=== PATIENT | female | born 1970 | race Caucasian/White ===

== ENCOUNTER 2019-06-09 17:43 | Outpatient (REF) | payer OTHER, SELFPAY ==
--- NOTE | 2019-06-09 16:15 | PAPFT_PTH ---
PATIENT: Katiana Monroe LOC: [facility]#:[id number] AGE/SX: 49/F ROOM: RE06/09/[address]: Kenton Harry : 1970 BED: DIS: 06/09/2019 SPEC #: [id number] RECD: 06/10/19 13:04 STATUS: IRMA ARANA #: [id number] TAYLOR: 06/09/19 16:[address]: Kenton Harry DEPT: [facility] Cytology RECD BY: Vane Rebolledo ENTERED: 06/10/19 13:04 SP TYPE: PAPFT OTHR DR: Opal aBrrett Tissues: 1 - CX/ENDOCX FOR PAP SMEARS Procedures: PAP THIN PREP/UVM Screening HPV DNA PROBE Comments: [id number]
== END 2019-06-09 18:03 ==
LOC: NCHCN 17:43
PROVIDERS: PCP Nurse Practitioner Family; Visit Provider Physician Assistant Medical
DX: Z12.4 Encounter for screening for malignant neoplasm of cervix (principal); Z11.51 Encounter for screening for human papillomavirus (HPV)
CPT/HCPCS: 88142; 87624

== ENCOUNTER 2019-06-16 07:02 | Outpatient (CLI) | payer OTHER, SELFPAY ==
[2019-06-16 08:02] LABS: ALT 22 U/L (14-59); AST 9 U/L (15-37); Albumin 3.6 g/dL (3.4-5.0); Alkaline Phosphatase 68 U/L (46-116); Anion Gap 6.5 mmol/L (3-11); BUN 14 mg/dL (7-18); Bilirubin, Total 0.5 mg/dL (0.2-1.0); CO2 27.5 mmol/L (21.0-32.0); CREATININE 0.72 mg/dL (0.55-1.02); Calcium 8.8 mg/dL (8.5-10.1); Calculated LDL 113 mg/dL (<100); Chloride 104 mmol/L (98-107); Cholesterol 180 mg/dL (<200); Glucose 95 mg/dL (74-106); HDL Cholesterol 51 mg/dL (40-60); Sodium 138 mmol/L (136-145); Total Protein 6.1 g/dL (6.4-8.2); Triglyceride 84 mg/dL (<150)
== END 2019-06-16 07:22 ==
PROVIDERS: PCP Physician Assistant Medical; Visit Provider Physician Assistant Medical
DX: Z00.00 Encounter for general adult medical examination without abnormal findings (principal); Z13.220 Encounter for screening for lipoid disorders; Z13.228 Encounter for screening for other metabolic disorders
CPT/HCPCS: 36415; 80053; 80061

== ENCOUNTER 2020-04-05 00:38 | Outpatient (CLI) | payer OTHER, SELFPAY ==
--- NOTE | 2020-04-05 16:22 | DI.MAMMO_ITS ---
EXAM: MG MAMMO SCREENING CLINICAL HISTORY: SCREENING,[facility],Z00.00 TECHNIQUE: Bilateral full field digital CC and MLO mammographic images were obtained with 3D tomosyn thesis and utilizing computer aided detection (CAD). COMPARISON: Available for comparison. FINDINGS: There is motion on the left MLO view. This view should be repeated at the patient's convenience. Masses/Architectural Distortion: None seen. Microcalcifications: No suspicious pleomorphic-type are seen. Skin Thickening/Nipple Retraction: None. IMPRESSION: 1. No significant interval change with no specific features of malignancy noted. 2. Motion artifact on the left MLO view. The patient should return for repeat view. BI-RADS Category 0 - Assessment Incomplete: Need additional imaging evaluation Breast Density - Category C - Heterogeneously dense The mammogram demonstrates the patient's breast tissue is dense. Dense breast tissue is very common a nd is not abnormal but dense breast tissue can make it harder to find cancer on a mammogram. Also, de nse breast tissue may increase their breast cancer risk. This [facility] was provided to the patient to raise their awareness. Use this report when you speak wi th the patient about their risks for breast cancer, which includes their family history. At that time , you may recommend for more screening tests (Ultrasound or MRI) as they might be useful based on the ir risk. A negative radiographic report should not delay biopsy if a dominant or clinically suspicious mass is present. Up to ten percent of cancers are not identified on mammography. A negative report may reinforce clinical impression. Adenosis and dense breasts may obscure an underlying neoplasm. False positive reports average 6 to 10%. Patient will receive a letter notifying them of these results.
== END 2020-04-05 00:58 ==
PROVIDERS: PCP Physician Assistant Medical; Visit Provider Physician Assistant Medical
DX: Z12.31 Encounter for screening mammogram for malignant neoplasm of breast (principal)
CPT/HCPCS: 77063; 77067

== ENCOUNTER 2020-04-20 01:16 | Outpatient (CLI) | payer OTHER, SELFPAY ==
--- NOTE | 2020-04-20 14:52 | DI.MAMMO_ITS ---
EXAM: MG MAMMO SCREEN CALL BACK UNI CLINICAL HISTORY: F/U MAMMO, REPEAT LT MLO FOR MOTION. TECHNIQUE: Bilateral full field digital CC and MLO mammographic images were obtained with 3D tomosyn thesis and utilizing computer aided detection (CAD). COMPARISON: Prior mammograms dating back to 2011, the most recent being May 2017 and most recent ly April 05, 2020. FINDINGS: As requested, a repeat left MLO view was performed due to motion on the original image of March. This no image reveals a subtle suggestion of a new microcalcification group. We therefore performed additional spot Mag view. This group appears benign in appearance at this time and probably is withi n a forming oil cyst (as are seen elsewhere in the same breast). IMPRESSION: New microcalcification group in the left breast, possibly within a developing oil cyst. Recommend fo llow-up Mag view in 6 months. BI-RADS Category 3 - 6 month - Probably Benign Finding: Recommend follow-up mammography in 6 months Breast Density - Category C - Heterogeneously dense Breast density Category C or D implies that the patient has dense breast tissue. Dense breast tissue can make it harder to find cancer on a mammogram. Dense breast tissue is also associated with an incr eased risk of breast cancer. This information about the result of the mammogram report was provided to the patient to raise their awareness. Use this report when you speak with the patient about their risks for breast cancer, which includes their family history. At that time, you may recommend additional screening tests (Ultrasoun d or MRI) as these tests may add significant information. A negative radiographic report should not delay biopsy if a dominant or clinically suspicious mass is present. Up to ten percent of cancers are not identified on mammography. A negative report may reinforce clinical impression. Adenosis and dense breasts may obscure an underlying neoplasm. False positive reports average 6 to 10%. Patient will receive a letter notifying them of these results.
== END 2020-04-20 01:36 ==
PROVIDERS: PCP Physician Assistant Medical; Visit Provider Physician Assistant Medical
DX: R92.0 Mammographic microcalcification found on diagnostic imaging of breast (principal)
CPT/HCPCS: 77063; 77067

== ENCOUNTER 2020-06-03 19:52 | Emergency (ER) | payer OTHER, SELFPAY ==
[2020-06-03 19:55] VITALS: BP 143/96; PULSE 61; RESP 16; TEMP 36.5; O2SAT 97
--- NOTE | 2020-06-03 20:00 | DI.RAD_ITS ---
EXAM: XR TIB/FIB RT CLINICAL HISTORY: pain s/p fall. TECHNIQUE: 2D digital imaging was performed. COMPARISON: No exams were available for comparison FINDINGS: BONES: No acute fracture is present. No bony destructive lesion is seen. Visualized portion of knee a nd ankle joints are unremarkable. SOFT TISSUE: Normal. IMPRESSION: Unremarkable radiographs of the right tibia and fibula. DATA REPOSITORY: RADIATION DOSE DELIVERED:
--- NOTE | 2020-06-03 20:08 | ED.GENADUL_ITS ---
Discharge Plan Disposition Patient Disposition: HOME Condition: Stable Discharge Details Clinical Impression: Contusion of leg, right Primary Care Provider: Kenton Harry ED Provider: Andrew Meyers Home Meds and New Rx's Prescriptions: New gabapentin 300 mg capsule 300 mg PO TID PRN (Reason: pain) Qty: 30 RF: 0 Continued doxepin 10 mg capsule 10 mg PO HS RF: 0 Discharge Instructions Instructions: Contusion in Adults (ED) Additional Instructions: if pain is not improving within a week follow up with your primary care provider return to the emergency department for severe worsening pain or new symptoms such as difficulty breathing or significant swelling of the leg Medical Decision Making 50 yo female with hx of right sided sciatica and has had increased lower back pain similar to prior episodes and yesterday was standing on her counter slipped and landed on right leg. Denies head pain, neck pain, arm pain, chest pain, abdominal pain and no preceding symptoms prior to this. Biggest complaint currently is right mid tibia pain, has no pain in the foot, ankle, knee or hip or femur. No lower back tenderness. No saddle anesthesia. Normal distal sensation and pulses, full rom of the hip, knee, and ankle. Has tenderness to the mid anterior tibia, no palpable or visible deformities so doubt fx but will xray to evaluate for this. xray negative, suspect contusion. Patient requests crutches in case it flares up again. Stable neurovascular exam. Advised to f/u with pcp if not improving within a week and return precautions given Differential Diagnosis Differential Diagnosis: contusion, sciatica, sprain, strain, fx Imaging Data Radiologic Study: Attestation: I personally reviewed and interpreted this imaging study as follows: Imaging: X-Ray Radiologist's impression: no acute findings HPI General Mode of arrival: ambulatory . Date/Time Provider Initiated Documentation: 06/03/20 20:02 . Limitations to Documentation: no limitations . Information obtained by: patient . History of Present Illness 50 year old F presents to the emergency department with the chief complaint of right tibia pain, described as moderate, Patient started experiencing this day(s) (1) and it has been constant. Rest improves symptom(s), Movement worsens symptoms . Patient notes no other symptoms.. Patient did receive the following treatments prior to arrival, NSAID Related Data Home Medications Medication Instructions Recorded Confirmed doxepin 10 mg PO HS 06/03/20 06/03/20 gabapentin 300 mg PO TID PRN #30 cap 06/03/20 Previous Rx's Medication Instructions Recorded gabapentin 300 mg PO TID PRN #30 cap 06/03/20 Allergies Allergy/AdvReac Type Severity Reaction Status Date / Time No Known Allergies Allergy Unverified 06/03/20 19:59 General Stated Complaint: Orthopedic ALFREDO: 4 Review of Systems All systems reviewed & are unremarkable except as noted in HPI and below Constitutional Constitutional: Denies chills, Denies fever(s) and Denies weakness Cardiovascular Cardiovascular: Denies chest pain and Denies dyspnea Respiratory Respiratory: Denies cough and Denies dyspnea Gastrointestinal Gastrointestinal: Denies abdominal pain, Denies nausea and Denies vomiting Neurologic Neurologic: Denies weakness PFSH Social History Smoking/Tobacco Use Status: Former Tobacco Use Smoking risk assessment performed?: Yes Alcohol Intake: current Alcohol Intake frequency: a few times a month Drug use: Never Substance use type: does not use Do you feel safe at home: Yes Do you feel safe in your relationship?: Yes Exam Const General: no acute distress Orientation: alert HENMT Head: normal to inspection Ears: external ears normal General nose exam: external nose normal Mouth: moist mucous membranes Eyes General: appearance normal, both eyes and all related structures Neck Neck: normal visual inspection Resp Effort & Inspection: normal respiratory effort and able to speak in complete sentences Cardio Rate: regular rate Skin General skin exam: no rashes or lesions noted Neuro General: patient alert and patient oriented x3 Extrem General: full ROM and capillary refill normal Psych Mental Status: mental status grossly normal Course Vital Signs Vital signs: Vital Signs Temperature 36.5 C 06/03/20 19:55 Pulse 61 06/03/20 19:55 Respiratory Rate 16 06/03/20 19:55 Blood Pressure 143/96 H 06/03/20 19:55 Pulse Oximetry 97 06/03/20 19:55 Temperature 36.5 C 06/03/20 19:55 Pulse 61 06/03/20 19:55 Respiratory Rate 16 06/03/20 19:55 Respiratory Effort Non-Labored 06/03/20 20:00 Blood Pressure 143/96 H 06/03/20 19:55 Pulse Oximetry 97 06/03/20 19:55 Pain Level 7 06/03/20 19:55
[2020-06-03] MEDS: Gabapentin 300 MG CAP PO (20:15)
--- NOTE | 2020-06-03 20:27 | DI.VRAD_ITS ---
PROCEDURE INFORMATION: Exam: XR Right Tibia and Fibula Exam date and time: 06/03/2020 8:20 PM Age: 50 years old Clinical indication: Lower leg; Right; Patient HX: Pain S/P fall TECHNIQUE: Imaging protocol: XR Right tibia and fibula. Views: 2 views. COMPARISON: No relevant prior studies available. FINDINGS: Bones/joints: No acute displaced fractures or subluxations are identified. Osseous mineralization is normal. There are no focal osseous lesions. There is no evidence for degenerative change at the right knee or right ankle. Soft tissues: Normal. IMPRESSION: No acute displaced fracture or subluxation. Dictated and Authenticated by: Marcus Courtney MD. Ordering:MIKE Morales MD
== END 2020-06-03 20:50 | disposition home or self-care (01) ==
PROVIDERS: Emergency Provider Emergency Medicine; PCP Physician Assistant Medical
DX: S80.11XA Contusion of right lower leg, initial encounter (principal); W17.89XA Other fall from one level to another, initial encounter; M54.41 Lumbago with sciatica, right side
CPT/HCPCS: 99283; 73590

== ENCOUNTER → 2020-11-14 02:01 | Outpatient (CLI) | payer OTHER, SELFPAY ==
--- NOTE | 2020-11-14 14:45 | DI.MAMMO_ITS ---
Exam(s) MG MAMMO DIAGNOSTIC UNI EXAM: MG MAMMO DIAGNOSTIC UNI CLINICAL HISTORY: DIAGNOSTIC, F/U ABNL MAMMO, 6 MONTH F/U,R92.8 TECHNIQUE: Mammograms were interpreted according to the usual protocol including computer analysis w [employer] CAD system, tomosynthesis and C-view imaging. COMPARISON: FINDINGS: Left breast mammogram was obtained to re-evaluate a group of microcalcifications seen in the upper ou ter quadrant of left breast on previous mammogram March 2020. On today's examination these are mo re clearly seen and appear to represent benign acinar microcalcifications. No other significant lee ge seen. IMPRESSION: No specific evidence of malignancy at this time. I would suggest that routine screening examinations resume with a bilateral mammogram 6 months. BI-RADS Category 3 - Annual - Resume Annual Screening Breast Density - Category C - Heterogeneously dense
== END ==
PROVIDERS: PCP Physician Assistant Medical; Visit Provider Physician Assistant Medical
DX: R92.8 Other abnormal and inconclusive findings on diagnostic imaging of breast (principal); R92.0 Mammographic microcalcification found on diagnostic imaging of breast; R92.2 Inconclusive mammogram
CPT/HCPCS: 77061; 77065; G0279

== ENCOUNTER 2021-05-21 16:11 | Outpatient (REF) | payer OTHER, SELFPAY ==
[2021-05-21 19:58] LABS: Hemoglobin A1C 5.5 % (<5.7)
[2021-05-21 20:07] LABS: Calculated LDL 154 mg/dL (<100); Cholesterol 248 mg/dL (<200); HDL Cholesterol 74 mg/dL (40-60); TSH (W/Ref FT4) 1.63 uIU/mL (0.36-3.74); Triglyceride 100 mg/dL (<150)
== END 2021-05-21 16:12 | disposition home or self-care (01) ==
LOC: NCHCN 16:11
PROVIDERS: PCP Physician Assistant Medical; Visit Provider Physician Assistant Medical
DX: Z71.3 Dietary counseling and surveillance (principal); Z13.21 Encounter for screening for nutritional disorder
CPT/HCPCS: 80061; 83036; 84443

== ENCOUNTER 2021-08-30 01:48 | Outpatient (CLI) | payer OTHER, SELFPAY ==
--- NOTE | 2021-08-30 07:36 | DI.MAMMO_ITS ---
Exam(s) MAMMO SCREENING EXAM: MAMMO SCREENING CLINICAL HISTORY: SCREENING, ANNUAL EXAM, Z00.00,6 mo f/u, resume annual TECHNIQUE: Mammograms were interpreted according to the usual protocol including computer analysis w [employer] CAD system, tomosynthesis and C-view imaging. COMPARISON: FINDINGS: The breasts are of moderate density with fairly symmetrical distribution of fibroglandular tissue. N o dominant mass or clumped microcalcification is identified in either breast. A central right breast well-circumscribed nodule is ring about 10 millimeters in diameter is unchanged from prior studies. A posteriorly located lobulated nodule of the left breast seen on CC view is unchanged from prior st udies. No other significant change. IMPRESSION: No specific evidence of malignancy at this time. Routine screening examinations are suggested at yea rly intervals in this age group according to the ACS ACR guidelines. BI-RADS Category 1 - Negative Breast Density - Category B - Scattered areas of fibroglandular density
== END 2021-08-30 02:08 ==
PROVIDERS: PCP Physician Assistant Medical; Visit Provider Physician Assistant Medical
DX: Z12.31 Encounter for screening mammogram for malignant neoplasm of breast (principal)
CPT/HCPCS: 77063; 77067

== ENCOUNTER → 2023-02-03 02:58 | Outpatient (CLI) | payer OTHER, SELFPAY ==
--- NOTE | 2023-02-03 | DI.MAMMO_ITS ---
Exam(s) MAMMO SCREENING EXAM: MAMMO SCREENING CLINICAL HISTORY: SCREENING, Z12.31, [facility], Z00.00 TECHNIQUE: Mammograms were interpreted according to the usual protocol including computer analysis w ith CAD system, tomosynthesis and C-view imaging. COMPARISON: 2013 through 2021 FINDINGS: The breasts are composed of scattered fibroglandular densities, Breast Density category B. No suspicious masses or suspicious microcalcifications are seen. No skin thickening or abnormal axillary lymph nodes are seen. There has been no significant change from prior exams. IMPRESSION: BI-RADS Category 1, Negative mammogram Yearly screening mammography is recommended. Breast Density - Category B, scattered fibroglandular densities. A negative radiographic report should not delay biopsy if a dominant or clinically suspicious mass is present. Up to ten percent of cancers are not identified on mammography. A negative report may reinforce clinical impression. Adenosis and dense breasts may obscure an underlying neoplasm. False positive reports average 6 to 10%. Patient will receive a letter notifying them of these results.
== END ==
PROVIDERS: PCP Physician Assistant Medical; Visit Provider Physician Assistant Medical
DX: Z12.31 Encounter for screening mammogram for malignant neoplasm of breast (principal)
CPT/HCPCS: 77063; 77067

== ENCOUNTER 2023-03-08 18:43 | Emergency (ER) | payer OTHER, SELFPAY ==
[2023-03-08 18:49] VITALS: BP 145/97; PULSE 69; RESP 16; TEMP 37.1; O2SAT 99
--- NOTE | 2023-03-08 18:53 | ED.GENADUL_ITS ---
Discharge Plan Disposition Patient Disposition: Home Discharge Details Clinical Impression: Lymphadenitis, acute Primary Care Provider: Kenton Harry ED Provider: Andrew Meyres Home Meds and New Rx's Prescriptions: New amoxicillin-pot clavulanate 875-125 mg tablet 1 tab PO BID Qty: 14 0RF amoxicillin-pot clavulanate 875-125 mg tablet 1 tab PO BID Qty: 20 0RF Continued loratadine [Claritin] 10 mg tablet 10 mg PO DAILY Discharge Instructions Instructions: Adenitis (ED) Additional Instructions: Follow up with your primary care provider within a week if not improving You should take the augmentin twice daily for 10 days (I sent the first prescription in for only 7 days on error, you only need to fill the prescription that is for 10 days) if you feel more ill, have severe worsening pain or high fevers return to the emergency department Medical Decision Making 52 yo female who denies significant chronic medical problems comes in after she noticed a painful lump near her right shoulder. She states she felt well all day and has not had any recent fevers, chills or other uri symptoms. She states she touched her right shoulder area and noticed a painful lump so came here. She is stable on arrival speaking clearly in no distress. She has a 2x3cm area of mild erythema midway between the neck and shoulder just superior to the clavicle. No swelling or pain in the shoulder. There is a hard mobile approximat greg 1cm nodule in the center that I suspect is an enlarged lymph node. She has no fluctuance and on bedside u/s has no fluid collections to suggest abscess. Will start her on augmentin for lymphadenititis given no recent uri or other symptoms to suggest reactive lymphadenitis from a viral illness. She understands to f/u with her pcp and return precautions given. given well appearance and no fevers doubt sepsis of nec fasc and do not feel any labs or imaging indicated. Differential Diagnosis Differential Diagnosis: lymphadenisitis, cellulitis HPI General Mode of arrival: ambulatory . Date/Time Provider Initiated Documentation: 03/08/23 18:44 . Limitations to Documentation: no limitations . Information obtained by: patient . History of Present Illness 52 year old F presents to the emergency department with the chief complaint of lump near right shoulder, described as moderate, Quality is described as aching, Patient started experiencing this hour(s) (1) and it has been constant. No relieving factors improve symptom(s), No exacerbating factors reported . Patient notes no other symptoms.. Patient did receive the following treatments prior to arrival, none Related Data Home Medications Medication Instructions Recorded Confirmed loratadine 10 mg tablet (Claritin) 10 mg PO DAILY 06/15/21 03/08/23 amoxicillin 875 mg-potassium 1 tab PO BID #14 tabs 03/08/23 clavulanate 125 mg tablet amoxicillin 875 mg-potassium 1 tab PO BID #20 tabs 03/08/23 clavulanate 125 mg tablet Previous Rx's Medication Instructions Recorded amoxicillin 875 mg-potassium 1 tab PO BID #14 tabs 03/08/23 clavulanate 125 mg tablet amoxicillin 875 mg-potassium 1 tab PO BID #20 tabs 03/08/23 clavulanate 125 mg tablet Allergies Allergy/AdvReac Type Severity Reaction Status Date / Time fluticasone [From Flonase] Allergy Severe unknown Verified 03/08/23 18:53 General Stated Complaint: RashLesion ALFREDO: 4 Review of Systems All systems reviewed & are unremarkable except as noted in HPI and below Constitutional Constitutional: Denies chills, Denies fever(s) and Denies weakness Cardiovascular Cardiovascular: Denies chest pain and Denies dyspnea Respiratory Respiratory: Denies cough and Denies dyspnea Gastrointestinal Gastrointestinal: Denies abdominal pain, Denies nausea and Denies vomiting Musculoskeletal Musculoskeletal: Denies joint swelling Neurologic Neurologic: Denies weakness PFSH All Active Problems (Updated 03/08/23 @ 19:08 by Andrew Meyers MD) Lymphadenitis, acute (Acute) Screening for colon cancer (Acute) Medical History (Updated 03/08/23 @ 19:08 by Andrew Meyers MD) Abnormal serum iron level Abnormal mammogram of right breast Learning disabilities Anxiety disorder Galactorrhea History of anemia Decreased libido Depression Snoring Family history of alcohol abuse Abnormality of left breast on screening mammogram Skin tag Social History Smoking/Tobacco Use Status: Former Tobacco Use Smoking risk assessment performed?: Yes Alcohol Intake: current Alcohol Intake frequency: a few times a month Drug use: Never Substance use type: does not use Do you feel safe at home: Yes Do you feel safe in your relationship?: Yes Exam Const General: no acute distress Orientation: alert HENME Head: normal to inspection Ears: external ears normal General nose exam: external nose normal Mouth: moist mucous membranes Eyes General: appearance normal, both eyes and all related structures Neck Neck: normal visual inspection Resp Effort & Inspection: normal respiratory effort and able to speak in complete sentences Cardio Rate: regular rate Skin General skin exam: elasticity normal Neuro General: patient alert and patient oriented x3 Extrem General: normal to inspection Psych Mental Status: mental status grossly normal Course Vital Signs Vital signs: Vital Signs Temperature 37.1 C 03/08/23 18:49 Pulse 69 03/08/23 18:49 Respiratory Rate 16 03/08/23 18:49 Blood Pressure 145/97 H 03/08/23 18:49 Pulse Oximetry 99 03/08/23 18:49 Temperature 37.1 C 03/08/23 18:49 Temperature Source Oral 03/08/23 18:49 Pulse 69 03/08/23 18:49 Respiratory Rate 16 03/08/23 18:49 Respiratory Effort Normal, Splinting 03/08/23 18:52 Blood Pressure 145/97 H 03/08/23 18:49 Blood Pressure Position Sitting 03/08/23 18:49 Pulse Oximetry 99 03/08/23 18:49 Oxygen Delivery Method Room Air 03/08/23 18:49 Oxygen Flow Rate 0 03/08/23 18:49 Pain Level 1 03/08/23 18:49
[2023-03-08] MEDS: Amoxicillin 875/Clav. 125 TAB PO (19:08)
[2023-03-08 19:37] VITALS: PULSE 78; RESP 18; O2SAT 97
== END 2023-03-08 19:37 | disposition home or self-care (01) ==
PROVIDERS: Emergency Provider Emergency Medicine; PCP Physician Assistant Medical
DX: L04.9 Acute lymphadenitis, unspecified (principal)
CPT/HCPCS: 99283; 99284

== ENCOUNTER 2023-07-25 07:32 | Outpatient (CLI) | payer BC, SELFPAY ==
[2023-07-25 07:33] LABS: Abs Immature Grans 0.01 10^3/uL (0.0-0.06); Absolute Basophil Count 0.06 10^3/uL (0.0-0.2); Absolute Eosinophil Count 0.14 10^3/uL (0.0-0.7); Absolute Lymphocyte Count 2.05 10^3/uL (1.2-3.4); Absolute Monocyte Count 0.45 10^3/uL (0.1-0.8); Absolute Neutrophil Count 3.54 10^3/uL (1.2-6.7); Eosinophils % 2.2; HGB 14.2 g/dL (11.2-15.7); Immature Grans % 0.2; Lymphocytes % 32.8; MCH 27.6 pg (27.0-33.0); MCV 84 fL (80-95); MPV 9.1 fL (8.0-11.0); Monocytes % 7.2; Neutrophils % 56.6; Platelet Count 234 10^3/uL (130-400); RBC 5.15 10^6/uL (3.93-5.22); RDW 13.9 % (11.7-14.6); RDW-SD 42.4 fL; WBC 6.25 10^3/uL (4.4-10.8)
[2023-07-25 08:21] LABS: Hemoglobin A1C 5.5 % (<5.7)
[2023-07-25 08:36] LABS: Vitamin D 25 Total 19.3 ng/mL (30-100)
[2023-07-25 08:37] LABS: ALT 22 U/L (14-59); AST 7 U/L (15-37); Albumin 3.7 g/dL (3.4-5.0); Alkaline Phosphatase 118 U/L (46-116); Anion Gap 6.1 mmol/L (3-11); BUN 20 mg/dL (7-18); Bilirubin, Total 0.3 mg/dL (0.2-1.0); CO2 29.9 mmol/L (21.0-32.0); CREATININE 0.9 mg/dL (0.55-1.02); Calcium 9.6 mg/dL (8.5-10.1); Calculated LDL 132 mg/dL (<100); Chloride 106 mmol/L (98-107); Cholesterol 217 mg/dL (<200); Ferritin 145 ng/mL (8-252); Glucose 96 mg/dL (74-106); HDL Cholesterol 64 mg/dL (40-60); Sodium 142 mmol/L (136-145); TSH (W/Ref FT4) 2.58 uIU/mL (0.36-3.74); Triglyceride 106 mg/dL (<150); Vitamin B12 528 pg/mL (193-986)
[2023-07-25 20:49] LABS: FSH 146.8 mIU/mL (See Note)
== END 2023-07-25 07:33 | disposition home or self-care (01) ==
LOC: LBO 07:45
PROVIDERS: PCP Physician Assistant Medical; Visit Provider Nurse Practitioner Family
DX: I10 Essential (primary) hypertension (principal); E78.5 Hyperlipidemia, unspecified; E66.9 Obesity, unspecified
CPT/HCPCS: 36415; 80053; 80061; 82306; 82607; 82728; 83001; 83036; 84443; 85025

== ENCOUNTER 2023-08-18 09:49 | Outpatient (CLI) | payer BC, SELFPAY ==
[2023-08-18 08:29] LABS: TSH 2.22 uIU/Ml (0.36-3.74)
== END 2023-08-18 09:50 | disposition home or self-care (01) ==
LOC: LBO 09:50
PROVIDERS: PCP Physician Assistant Medical; Visit Provider Nurse Practitioner Family
DX: E03.9 Hypothyroidism, unspecified (principal)
CPT/HCPCS: 36415; 84443

== ENCOUNTER 2024-02-20 00:41 | Outpatient (CLI) | payer BC, SELFPAY ==
--- NOTE | 2024-02-20 | DI.MAMMO_ITS ---
Exam(s) MAMMO SCREENING EXAM: MAMMO SCREENING CLINICAL HISTORY: SCREENING, ROUTINE EXAM TECHNIQUE: Mammograms were interpreted according to the usual protocol including computer analysis w [employer] CAD system, tomosynthesis and C-view imaging. COMPARISON: 2013 through 2022 FINDINGS: The breasts are composed of scattered fibroglandular densities, Breast Density category B. No suspicious masses or suspicious microcalcifications are seen. No skin thickening or abnormal axillary lymph nodes are seen. There has been no significant change from prior exams. IMPRESSION: BI-RADS Category 1, Negative mammogram Yearly screening mammography is recommended. Breast Density - Category B, scattered fibroglandular densities. A negative radiographic report should not delay biopsy if a dominant or clinically suspicious mass is present. Up to ten percent of cancers are not identified on mammography. A negative report may reinforce clinical impression. Adenosis and dense breasts may obscure an underlying neoplasm. False positive reports average 6 to 10%. Patient will receive a letter notifying them of these results.
== END 2024-02-20 01:01 ==
LOC: DI 00:41
PROVIDERS: PCP Physician Assistant Medical; Visit Provider Nurse Practitioner Family
DX: Z12.31 Encounter for screening mammogram for malignant neoplasm of breast (principal)
CPT/HCPCS: 77063; 77067

== ENCOUNTER 2024-03-12 10:02 | Day surgery (SDC) | payer BC, SELFPAY ==
--- NOTE | 2024-03-11 21:52 | COLE_ITS ---
Date of service: 03/12/24 Time of Service: 11:45 Colonoscopy Report Date of procedure: 03/12/24 Pre-op diagnosis general: CRC screen/constipaiton Post-op diagnosis procedure note: other (Diverticula and internal hemorrhoids) Surgeon: Amelia Alfredo Anesthesia Type: General:No Airway Estimated blood loss (mL): 0 Pathology: none sent Complications: None Disposition: same day Prep: Miralax/Dulcolax Retraction Time: 8 Procedure Description: After informed consent was obtained, explaining risks of the procedure, including but not limits to: bleeding, infections, complications of anesthesia, perforations (which may require antibiotics and /or surgery and stay in the hospital), and abdominal pain/cramping. The patient was taken to the procedure room and placed in a left decubitous position. Monitors were applied and a time out was done. The patients name, date of , procedure, allergies to medications and metal in their body was reviewed. The patient was then sedated. Once sedated and comfortable a rectal exam was done. External exam was normal. Internal exam revealed a normal sphincter tone and no palpable masses. The previously lubricated Olympus scope was then introduced (see RN notes for scope number) and retrofelexed. Grade 2 internal hemorrhoids were identified. The scope was then advanced to the cecum without difficulty. The TI and appendiceal orifice were identified. The scope was then slowly retracted over 8 minutes back into the rectum. Polyps: none. Diverticula: pt had a moderate amount of small mouthed diverticula in the sigmoid colon. There were no signs of active bleeding or infection. The mucosa is pink and healthy w/ a normal vascular pattern. The scope was removed, and the patient was woken up and taken back to Same day surgery in stable condition. The patient tolerated the procedure well and there were no immediate complications. Follow up: The patient should follow up in 10 years, unless they develop changes in bowel habits or other new gastrointestinal complaints. [place] Bowel Prep [place] Bowel Prep Right Colon: 3 Left Colon: 3 Transverse Colon: 3 Total Score: 9
--- NOTE | 2024-03-11 21:54 | PDOC.DSDIS_ITS ---
Date of service: 03/12/24 Time of Service: 13:33 Discharge Plan Disposition Patient Disposition: Home Condition: Good Discharge Details Reason For Visit: colon scope Attending Provider: Amelia Alfredo Primary Care Provider: Kenton Harry Home Meds and New Rx's Prescriptions: New psyllium husk [Metamucil] 0.4 gram capsule 0.8 g PO DAILY Qty: 60 12RF Rx Instructions: take w/ 8oz water. can increase to 4 tabs a day Continued loratadine [Claritin] 10 mg tablet 10 mg PO DAILY cholecalciferol (vitamin D3) 125 mcg (5,000 unit) capsule 125 mcg PO DAILY omega 1-qaw-eur-fish oil [Fish Oil] 300-1,000 mg capsule 2 cap PO DAILY montelukast 10 mg tablet 10 mg PO QHS levothyroxine 25 mcg capsule 50 mcg PO DAILY Discontinued bisacodyl [Dulcolax (bisacodyl)] 5 mg tablet,delayed release (DR/EC) 5 mg PO ONCE Qty: 4 0RF Rx Instructions: Take per colonoscopy instructions provided by ordering providers office polyethylene glycol 3350 17 gram/dose powder 17 g PO ONCE Qty: 238 0RF Rx Instructions: Take per colonoscopy instructions provided by ordering providers office Discharge Instructions Additional Instructions: DSU Colonoscopy Post- Op Instructions Instructions for Everyone who is given Anesthesia: For your safety, please do the following for the next twenty-four (24) hours: *Do Not operate a motor vehicle (car, truck, motorcycle, etc.) *Do Not drink alcoholic beverages or use any recreational drugs for the first 24 hours or while taking pain medications. The medications in your body may have a reaction that can be dangerous. *Do Not make any important decisions or sign any important papers. Findings: Diverticula and internal hemorrhoids. Make sure you are moving your bowels on a regular basis and not straining to go to the bathroom. If you find you are having problems with constipation, we recommend you start a fiber product such as Metamucil daily Follow up: Repeat colonoscopy in 10 years time, Of course, you should continue to have a yearly physical exam including a rectal exam. If you should ever notice any pain or difficulty having a bowel movement, blood in the stool, unexplained weight loss, or change in your bowel habits, please contact your health provider . 1. No lifting over 20 pounds or strenuous activity for the first 24 hours after your procedure. After 24 hours there are no restrictions on your activity but you may feel fatigued for a few days. 2. After you arrive home you may have a light meal and return to your normal diet as you can tolerate it without feeling sick to your stomach. 3. You may have a bloated, gaseous feeling in your belly (abdomen) after a colonoscopy. Passing gas and belching will help. Walking or lying down on your left side with your knees flexed may relieve the discomfort. Call the office at [phone] (Office) or [phone] (Hospital) right away if you notice any of the following: a.Vomiting of blood or ?coffee ground stools?. b.Rectal bleeding 1Tbsp, blood clots or continuous bleeding. c.Severe belly (abdominal) pain. d.A hard distended belly (abdomen) and an inability to pass gas. 4. Please don?t expect to have a normal BM (bowel movement) for 2-3 days after your procedure. 5. If there are questions regarding the findings of your procedure, please contact your doctor 6. If you are unable to contact your doctor with a problem, contact the hospital at [phone]. 7. Continue all your regular medications unless directed otherwise. I understand the above instructions and have no questions. Signature of Patient or Adult Escort Name of Responsible Adult Escort Signature of Nurse Date/Time Stand Alone Forms: Anesthesia Discharge Jose J Jimenez (DSU) Activity:: see above Diet:: see above Discharge Orders Discharge Orders: Discharge Order (Routine); Ordered 03/12/24 Ordered By: Amelia Alfredo DS: Diagnosis Discharge Diagnosis (1) Screening for colon cancer: Status: Acute Asessment and Plan: The patient is seen and examined after their colonoscopy.? The patient has been able to pass gas.? They are not having abdominal pain.? They have been able to tolerate liquids and a snack.? They do not have any nausea or vomiting.? They are not having any chest pain or shortness of breath.??? They are not having any rectal bleeding. Their vital signs have been stable-see nursing notes. We discussed findings during their colonoscopy, and any biopsies that were done/polyps that were removed. The patient will be sent a letter with any biopsy results, and when to repeat the colonoscopy.-see discharge instructions. Patient was given explicit instructions to follow-up regarding colonoscopy-refer to discharge instructions.? We reviewed resumption of medications. Patient verbalized understanding and discharged in stable and satisfactory condition- See nursing notes. (2) Diverticula of colon: Status: Acute (3) Internal hemorrhoid: Status: Acute (4) Chronic constipation: Status: Acute
[2024-03-12 10:21] VITALS: BP 128/98; PULSE 64; RESP 16; TEMP 36.5; O2SAT 97
[2024-03-12] MEDS: Lactated Ringers 500 ML 80 ML IV (10:41)
[2024-03-12 11:01] VITALS: BMI 36.2
--- NOTE | 2024-03-12 11:01 | W.ANESPRE ---
General Info Date of Service Date Performed: 03/12/24 Height: 5 ft 5 in Weight: 98.8 kg Body Mass Index (BMI): 36.2 Surgical Procedure: Operation Date: 03/12/24 10:50 Proposed Procedure Side Surgeon p Colonoscopy Amelia Alfredo, Pre-Op Diagnosis Post-Op Diagnosis colon scope Meds Allergies and Home Medications Allergies Allergy/AdvReac Type Severity Reaction Status Date / Time fluticasone (From Flonase) Allergy Severe unknown Verified 03/12/24 10:15 Home Medication ?Medication ?Instructions ?Recorded loratadine 10 mg tablet (Claritin) 10 mg PO DAILY 06/15/21 cholecalciferol (vitamin D3) 125 125 mcg PO DAILY 01/08/24 mcg (5,000 unit) capsule montelukast 10 mg tablet 10 mg PO QHS 01/08/24 omega 5-hjb-ngm-fish oil 300 2 cap PO DAILY 01/08/24 mg-1,000 mg capsule (Fish Oil) levothyroxine 25 mcg capsule 50 mcg PO DAILY 02/13/24 Current Visit Medications: Current Medications Generic Name Dose Route Start Last Admin Trade Name Freq PRN Reason Stop Dose Admin Hyoscyamine Sulfate 0.125 mg 03/12/24 00:44 Hyoscyamine 0.125 Mg Sl/Oral/Chew SL 04/11/24 00:43 DIRECTED PRN Ringer's Solution 500 mls @ 80 mls/hr 03/12/24 06:00 03/12/24 10:41 IV 03/12/24 23:59 80 mls/hr INFUSION ONEIL Administration IV Miscellaneous Supplies 1 each 03/12/24 06:00 Iv Access IV 03/12/24 23:59 DIRECTED ONEIL Ondansetron HCl 4 mg 03/12/24 00:44 Ondansetron 4 Mg/2 Ml Vial IVP 04/11/24 00:43 Q4H PRN PRN Nausea / Vomiting Sodium Chloride 0 ml 03/12/24 06:00 Normal Saline Flush 10 Ml Syr IV 03/12/24 23:59 PRN PRN Sodium Chloride 0 ml 03/12/24 06:00 Normal Saline 10 Ml Vial IJ 03/12/24 23:59 DIRECTED PRN Sterile Water 0 ml 03/12/24 06:00 Water,Injection,Sterile 10 Ml Vial IJ 03/12/24 23:59 DIRECTED PRN PFSH Active Problems Active Problems: Problem Status Onset Code Screening for colon cancer Acute Z12.11 Medical History Medical History Abnormal serum iron level Abnormal mammogram of right breast Learning disabilities Anxiety disorder Galactorrhea History of anemia Decreased libido Depression Snoring Family history of alcohol abuse Abnormality of left breast on screening mammogram Skin tag Medical History Comments:: menopause 3 yrs ago Surgical History Surgical History History of tubal ligation (~2020) Tobacco Smoking/Tobacco Use Status: Former Tobacco Use Alcohol Alcohol Intake: current Alcohol intake frequency: a few times a month Substance Use Substance use: Never Substance use type: does not use Vital Signs and Lab Results Vital Signs Most Recent Vital Signs in EMR: Most Recent Vital Signs Temp Pulse Resp BP Pulse Ox 36.5 C 64 16 128/98 H 97 03/12/24 10:21 03/12/24 10:21 03/12/24 10:21 03/12/24 10:21 03/12/24 10:21 Lab Results Blood Type / Crossmatch: No Data to Display Complete Blood Count: No Data to Display Complete Metabolic Panel: No Data to Display Liver Function Panel: No Data to Display Coagulation Panel: No Data to Display Cardiac Panel: No Data to Display Arterial Blood Gas: No Data to Display Venous Blood Gas: No Data to Display Pancreas Panel: No Data to Display Thyroid Panel: No Data to Display Infectious Disease: No Data to Display Blood Cultures: No Data to Display Toxicology Panel: No Data to Display Panel: No Data to Display Anesthesia Assessment and Plan Anesthesia History Personal History: No History of Anesthesia Complications Family History: Other Exercise Tolerance Exercise Tolerance: Metabolic Equivalents>4 Pertinent Negatives Pertinent Negatives: No Symptoms of GERD Cardiac & Pulmonary Exam Cardiac Exam: Normal S1/S2 Heart Sounds Pulmonary Exam: Clear Bilateral Breath Sounds Implantable Cardiac Device Does patient have a Pacemaker or an ICD?: No Airway Exam Known Difficult Airway: No Mallampati Class: 2 Mouth Opening: Normal (> 3cm) Thyromental Distance: Greater than 3 cm Neck Range of Motion: Full ROM Neck Circumference: Normal Teeth Condition: Normal Dentition ASA Classification ASA Score: ASA 2 Emergency Case?: No NPO Status NPO Status: NPO Clears >2 hours, Solids >8 hours Status Status: Not Relevant due to Medical History Anesthesia Plan Resuscitation Status: Full Code Anesthesia Technique: General Anesthesia Airway Planned: Natural Airway Monitors Used: Standard Monitors
[2024-03-12 11:42] VITALS: BP 121/86; PULSE 76; RESP 16; TEMP 36.2; O2SAT 97
--- NOTE | 2024-03-12 11:54 | W.ANESPOSTOP ---
Postoperative Evaluation Date, Time and Location Date Performed: 03/12/24 Time Performed: 11:54 Patient Location: Day Surgery Unit Vital Signs Most Recent Imported Vital Signs: Most Recent Vital Signs Temp Pulse Resp BP Pulse Ox 36.5 C 64 16 128/98 H 97 03/12/24 10:21 03/12/24 10:21 03/12/24 10:21 03/12/24 10:21 03/12/24 10:21 Pain Score Most Recent Pain Score: Most Recent Pain Score Pain Level 2 03/12/24 10:21 Assessment Mental Status: Awake (Alert & Oriented to Patient Baseline) Airway and Respiratory Function: Patent airway with normal (patient baseline) respiratory exam Cardiovascular Function: Hemodynamically Stable Hydration Status: Adequately Hydrated Nausea & Vomiting: No Nausea or Vomiting Pain: Pt. Denies Any Pain Peripheral Nerve Block: Patient did not receive a nerve block
[2024-03-12 12:19] VITALS: BP 125/82; PULSE 63; RESP 16; TEMP 36.4; O2SAT 98
== END 2024-03-12 13:55 | disposition home or self-care (01) ==
LOC: SUR 10:02
PROVIDERS: PCP Physician Assistant Medical; Visit Provider Surgery
PROC: 0DJD8ZZ Inspection of Lower Intestinal Tract, Via Natural or Artificial Opening Endoscopic (ICD-10-PCS; CPT 45378; principal; 2024-03-12 10:45)
DX: Z12.11 Encounter for screening for malignant neoplasm of colon (principal); K57.30 Diverticulosis of large intestine without perforation or abscess without bleeding; K59.09 Other constipation; K64.1 Second degree hemorrhoids
CPT/HCPCS: 45378; J2704

== ENCOUNTER 2024-05-07 08:48 | Outpatient (RCR) | payer BC, SELFPAY ==
--- NOTE | 2024-05-11 08:52 | W.HOLTRPT ---
Date of service: 05/11/24 Time of Service: 08:53 Holter Monitor Report Referring Provider:: Isabella Boone Indications:: Atrial fibrillation Holter Monitor Note: This is a 48-hour Holter monitor. Rhythm throughout was sinus with an average heart rate of 77. Minimum was 49, maximum 128. There were rare atrial and ventricular ectopic beats. There were several self-limited atrial runs. Longest of these was 10 beats in duration. There was no atrial fibrillation, no high-grade AV block, no pauses greater than 3 seconds. No symptoms were reported
== END 2024-05-18 23:59 | disposition home or self-care (01) ==
LOC: CARDOPNVT 08:48
PROVIDERS: PCP Physician Assistant Medical; Visit Provider Internal Medicine Cardiovascular Disease
DX: I49.1 Atrial premature depolarization (principal); Z51.89 Encounter for other specified aftercare
CPT/HCPCS: 93225; 93226

== ENCOUNTER 2024-06-23 09:18 | Inpatient (IN) | payer BC, SELFPAY ==
[2024-06-23] VITALS (127 sets, daily range): BP systolic 82–144; BP diastolic 43–124; PULSE 52–169; RESP 14–32; TEMP 36.6–38.1; O2SAT 87–100
--- NOTE | 2024-06-23 09:15 | RT.EKG_ITS ---
APPROVED REPORT Exam: Resting ECG Reason for Exam: Palpatations Patient Location: E HR:128 bpm ECG Measurements Heart Rate 128 [address] NV [id number] P [id number] QRSd 83 QRS -38 QT 320 T 29 QTc 467 Conclusion Atrial fibrillation...V-rate 85-169, irreg A-activity Left axis deviation...QRS axis (-30,-90) Low voltage, precordial leads...precordial leads <1.0mV Consider anterior infarct...Q >30mS in V2-V5
--- NOTE | 2024-06-23 09:15 | RT.EKG_ITS ---
APPROVED REPORT Exam: Resting ECG Reason for Exam: rapid heart rate Patient Location: E HR:151 bpm ECG Measurements Heart Rate 151 [address] MN [id number] P [id number] QRSd 79 QRS -38 QT 284 T 58 QTc 451 Conclusion Atrial fibrillation...V-rate 106-200, irreg A-activity Left axis deviation...QRS axis (-30,-90)
--- NOTE | 2024-06-23 09:31 | W.ED.GENAD ---
Discharge Plan Disposition Patient Disposition: Admit to [facility] Condition: Stable Discharge Details Chief Complaint: Dizzy/Sync Clinical Impression: Atrial fibrillation with RVR, Influenza A Primary Care Provider: Kenton Harry ED Provider: Andrew Meyers [place] Meds and New Rx's Prescriptions: No Action loratadine [Claritin] 10 mg tablet 10 mg PO DAILY cholecalciferol (vitamin D3) 125 mcg (5,000 unit) capsule 125 mcg PO DAILY omega 7-pik-qko-fish oil [Fish Oil] 300-1,000 mg capsule 2 cap PO DAILY montelukast 10 mg tablet 10 mg PO QHS levothyroxine 25 mcg capsule 50 mcg PO DAILY Zepbound 2.5 mg/0.5 mL pen injector 2.5 mg SUBCUT .COMPLEX Patient Comments: ADMINISTER 2.5 MG UNDER THE SKIN EVERY WEEK Rx Instructions: 2.5 mg subcutaneously weekly; psyllium husk [Metamucil] 0.4 gram capsule 0.8 g PO DAILY Qty: 60 12RF Rx Instructions: take w/ 8oz water. can increase to 4 tabs a day HPI General Mode of arrival: ambulatory. Date/Time Provider Initiated Documentation: 06/23/24 09:22. Limitations to Documentation: no limitations. Information obtained by: patient. History of Present Illness 54 year old F presents to the emergency department with the chief complaint of lightheaded, palpitations, described as moderate, Patient started experiencing this hour(s) (2) and it has been constant. No relieving factors improve symptom(s), No exacerbating factors reported . Patient notes chest pain and shortness of breath. Patient did receive the following treatments prior to arrival, none Related Data Home Medications ?Medication ?Instructions ?Recorded ?Confirmed loratadine 10 mg tablet (Claritin) 10 mg PO DAILY 06/15/21 06/23/24 cholecalciferol (vitamin D3) 125 125 mcg PO DAILY 01/08/24 06/23/24 mcg (5,000 unit) capsule montelukast 10 mg tablet 10 mg PO QHS 01/08/24 06/23/24 omega 4-djj-pez-fish oil 300 2 cap PO DAILY 01/08/24 06/23/24 mg-1,000 mg capsule (Fish Oil) levothyroxine 25 mcg capsule 50 mcg PO DAILY 02/13/24 06/23/24 psyllium husk 0.4 gram capsule 0.8 g (2 x 0.4 gram) PO DAILY 03/12/24 06/23/24 (Metamucil) constipation #60 caps tirzepatide (weight loss) 2.5 2.5 mg subcut .COMPLEX 06/23/24 06/23/24 mg/0.5 mL subcutaneous pen injector (Zepbound) Previous Rx's ?Medication ?Instructions ?Recorded psyllium husk 0.4 gram capsule 0.8 g (2 x 0.4 gram) PO DAILY 03/12/24 (Metamucil) constipation #60 caps Allergies Allergy/AdvReac Type Severity Reaction Status Date / Time fluticasone (From Flonase) Allergy Severe unknown Verified 06/23/24 09:40 General Stated Complaint: Dizzy/Sync ALFREDO: 2 Review of Systems All systems reviewed & are unremarkable except as noted in HPI and below Constitutional Constitutional: Denies chills, Denies fever(s) and Denies weakness Cardiovascular Cardiovascular: Reports chest pain, Reports rapid heart rate and Reports dyspnea Respiratory Respiratory: Denies cough and Reports dyspnea Gastrointestinal Gastrointestinal: Denies abdominal pain, Denies nausea and Denies vomiting Integumentary/Breasts Skin/Breast: Denies rash Neurologic Neurologic: Denies weakness Psychiatric Psychiatric: Denies depression Exam Const General: no acute distress Orientation: alert HENVA Head: normal to inspection Ears: external ears normal General nose exam: external nose normal Mouth: moist mucous membranes Eyes General: appearance normal, both eyes and all related structures Neck Neck: normal visual inspection Resp Effort & Inspection: normal respiratory effort and able to speak in complete sentences Auscultation: clear to auscultation bilaterally Cardio Jugular venous pressure: no JVD Rate: tachycardic Rhythm: abnormal rhythm Skin General skin exam: no rashes or lesions noted Neuro General: patient alert and patient oriented x3 Extrem General: normal to inspection Psych Mental Status: mental status grossly normal Course Vital Signs Vital signs: Vital Signs Temperature 36.6 C 06/23/24 09:25 Pulse 136 H 06/23/24 09:25 Blood Pressure 82/61 L 06/23/24 09:25 Pulse Oximetry 100 06/23/24 09:25 Temperature 36.6 C 06/23/24 09:25 Temperature Source Temporal Artery Scan 02/05/25 09:25 Pulse 136 H 06/23/24 09:25 Blood Pressure 82/61 L 06/23/24 09:25 Blood Pressure Position Sitting 06/23/24 09:25 Pulse Oximetry 100 06/23/24 09:25 Pain Level 0 06/23/24 09:25 Medical Decision Making 54-year-old female comes in with complaints of lightheadedness and having chest pain and palpitations. 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 She says that last night she noticed that she was more winded than normal when walking to her car. She is noted to be in A-fib with RVR currently. She currently has no chest pain to states that it feels like her heart is beating fast and irregularly. She has no calf tenderness, no JVD. I suspect her symptoms are due to A-fib with RVR. Will check CBC, CMP, troponins. Will also obtain a chest x-ray and treat her with diltiazem 10mg as bp is in the 90's systolic Patient had good response with 10 mg of diltiazem. Heart rates were 1 50-1 80 now ranging from 1 10-1 40 and that her blood pressure now is 106/65. Will order another 10 mg of IV diltiazem labs show slightly elevated troponin of 55, pro bnp of 1800, she is flu A positive, apparently started to have a cough last night. Oseltamavir ordered. Creatinine 1.4, mild enrique, unclear how much fluids patient has been drinking but suspect likely dehydration/prerenal as the cause of this. dilt drip ordered as well as heart rate still in the 120's. pending delta troponin. UA with leukocytes but denies urinary symptoms Delta Trope still increasing slightly, I still think this is a type II RI. Do not feel heparinization is indicated. She remains on dill drip, discussed with Dr. Montaño and plan to admit. Differential Diagnosis Differential Diagnosis: Electrolyte abnormality, NSTEMI, A-fib with RVR Medical Records Medical records reviewed: Yes I reviewed the patient's medical records. Lab Data Lab results reviewed: Yes I reviewed the patient's lab results. ECG Data Attestation: I personally reviewed and interpreted this ECG (s) as follows: Prior ECG tracings: available for review Interpretation: afib with rvr, rate of 151 no stemi 2nd ekg shows afib with rate of 128 no stemi Quality:SDOH Health Related Social Needs: No Data to Display Critical Care Time Critical Care Time Critical Care Time: Yes Total Critical Care Time: 60 (minutes) Attestation: Time spent on lab review, hemodynamic monitoring and frequent reassessments in a patient with A-fib with RVR with the potential to deteriorate at any time PFSH All Active Problems (Updated 06/23/24 @ 13:54 by Andrew Meyers MD) Influenza A (Acute) Atrial fibrillation with RVR (Acute) Elevated troponin (Acute) Atrial fibrillation with RVR (Acute) Chronic constipation (Acute) Internal hemorrhoid (Acute) Diverticula of colon (Acute) Screening for colon cancer (Acute) Medical History (Updated 06/23/24 @ 13:54 by Andrew Meyers MD) Abnormal serum iron level Abnormal mammogram of right breast Learning disabilities Anxiety disorder Galactorrhea History of anemia Decreased libido Depression Snoring Family history of alcohol abuse Abnormality of left breast on screening mammogram Skin tag Surgical History (Updated 03/12/24 @ 13:20 by Namita Rodriguez) History of colonoscopy (~02/2024) History of tubal ligation (~2020) Social History Smoking/Tobacco Use Status: Former Tobacco Use Quit Date: 05/19/95 Smoking risk assessment performed?: Yes Alcohol Intake: current Alcohol Intake frequency: a few times a month Drug use: Never Substance use type: does not use Housing: house Do you feel safe at home: Yes Do you feel safe in your relationship?: Yes
[2024-06-23] MEDS: Lactated Ringers 1,000 ML 1000 ML IV ×2 (09:42→11:30)
[2024-06-23] MEDS: dilTIAZem 25 MG/5 ML VIAL 10 MG IVP ×2 (09:45→10:10)
[2024-06-23 09:48] LABS: Abs Immature Grans 0.03 10^3/uL (0.0-0.06); Absolute Basophil Count 0.04 10^3/uL (0.0-0.2); Absolute Eosinophil Count 0.01 10^3/uL (0.0-0.7); Absolute Lymphocyte Count 1.27 10^3/uL (1.2-3.4); Absolute Monocyte Count 0.82 10^3/uL (0.1-0.8); Absolute Neutrophil Count 5.28 10^3/uL (1.2-6.7); BE (Venous) 0 mmol/L (-2-3); Basophils % 0.5 %; Eosinophils % 0.1 %; HCO3 (Venous) 25 mmol/L (23-28); HGB 16.6 g/dL (11.2-15.7); Immature Grans % 0.4 %; MCH 28.3 pg (27.0-33.0); MCHC 33.2 % (32.0-36.0); MCV 85 fL (80-95); MPV 9.6 fL (8.0-11.0); O2 Sat (Venous) 52 %; Platelet Count 239 10^3/uL (130-400); RBC 5.87 10^6/uL (3.93-5.22); RDW 13.9 % (11.7-14.6); RDW-SD 42.9 fL; TCO2 (Venous) 22 mmol/L (24-29); WBC 7.45 10^3/uL (4.4-10.8); pCO2 (Venous) 42 mmHg (41-51); pH (Venous) 7.38 (7.31-7.41); pO2 (Venous) 26 mmHg
[2024-06-23 10:00] LABS: PTT Activated 28.4 sec (20.6-30.2); Prothrombin Time 9.9 sec (9.1-11.1)
[2024-06-23 10:20] LABS: TSH (W/Ref FT4) 0.83 uIU/mL (0.36-3.74)
[2024-06-23 10:32] LABS: ALT 36 U/L (14-59); AST 25 U/L (15-37); Albumin 4.4 g/dL (3.4-5.0); Alkaline Phosphatase 96 U/L (46-116); Anion Gap 10.9 mmol/L (3-11); BUN 18 mg/dL (7-18); Bilirubin, Total 0.68 mg/dL (0.2-1.0); CO2 27.1 mmol/L (21.0-32.0); CREATININE 1.4 mg/dL (0.55-1.02); Chloride 104 mmol/L (98-107); Estimated GFR 45.27 (mL/min/1.73m2); Glucose 116 mg/dL (74-106); Magnesium 2.2 mg/dL (1.8-2.4); NT-proBNP 1884 pg/mL (<300); Potassium 3.9 mmol/L (3.5-5.1); Sodium 142 mmol/L (136-145); Total Protein 8.1 g/dL (6.4-8.2)
[2024-06-23 10:34] LABS: Troponin I 55 ng/L (<or=51)
[2024-06-23 10:51] LABS: Procalcitonin < 0.10 ng/mL
[2024-06-23 10:51] LABS: Bilirubin Negative (Negative); Blood Negative (Negative); Clarity Sl Cloudy (Clear); Glucose Negative (Negative); Ketones 15 mg/dL (Negative); Leukocyte Esterase Small (Negative); Nitrite Negative (Negative); Specific Gravity 1.015 (1.005-1.025); Urobilinogen 0.2 mg/dL (Up to 0.2)
[2024-06-23] MEDS: dilTIAZem 125 MG in Normal Saline 100 ML IV (10:52)
[2024-06-23 10:53] LABS: Troponin I 66 ng/L (<or=51)
--- NOTE | 2024-06-23 10:54 | DI.RAD_ITS ---
Exam(s) XR PORTABLE CHEST AP EXAM: XR PORTABLE CHEST AP CLINICAL HISTORY: chest pain TECHNIQUE: 2D digital imaging was performed. COMPARISON: No exams were available for comparison FINDINGS: LUNGS: Clear. No pleural abnormality seen. HEART: Normal size. AORTA: Normal diameter. BONES: Unremarkable for age. Soft tissues: Unremarkable. IMPRESSION: No acute findings. DATA REPOSITORY: RADIATION DOSE DELIVERED:
[2024-06-23 11:00] LABS: Bacteria Few HPF (Negative); C & S Indicated? Yes; Casts 3-5 Hyaline LPF (Negative); Crystals Negative HPF (Negative); Epithelial Cells Few HPF (Negative); Mucus Negative (Negative); Other Cells Few Transitional (Negative); RBC 0-2 HPF (0-2)
[2024-06-23 11:08] LABS: COVID-19 PCR Negative (Negative); Influenza A PCR Positive (Negative); Influenza B PCR Negative (Negative); RSV PCR Negative (Negative)
[2024-06-23 11:10] LABS: Source Nasopharynx
[2024-06-23] MEDS: Oseltamivir 75 MG CAP PO (12:35)
[2024-06-23 13:12] LABS: Troponin I 114 ng/L (<or=51)
--- NOTE | 2024-06-23 13:36 | HPE_ITS ---
Date of service: 06/23/24 Time of Service: 13:37 Assessment and Plan Assessment and plan (1) Atrial fibrillation with RVR: Status: Acute Assessment and plan: - Patient presented with palpitations was ultimately found to have newly diagnosed atrial fibrillation with rapid ventricular rate -She was given a total of 20 mg of IV diltiazem in the emergency department which did improve her heart rate down between 100 122 as well as improving her systolic blood pressures which were down in the 80s and now up to the 110's -was on dilt drip whc has since been weaned off just prior to arrival to the ICU -Also started on 25 mg p.o. Lopressor in the emergency department, will continue BID and give additional doses as needed if HR increases -Will obtain echocardiogram as this is a new diagnosis of atrial fibrillation with the patient (2) Elevated troponin: Status: Acute Assessment and plan: - Likely secondary to A-fib RVR and significantly elevated rates as noted above -Will follow-up a.m. troponin (3) Influenza A: Status: Acute Assessment and plan: - IV fluid positive in the emergency department -Was given initial dose of Tamiflu, will continue History of Present Illness History of Present Illness Chief Complaint: Dizziness Narrative: [id number] female with a past medical history hypothyroidism presents emergency department complaints of lightheadedness and palpitations. Patient states that night prior she noticed she was a little more short of breath with exertion but did not think anything of it. 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 She denies any chest pain, lightheadedness, visual changes, nausea vomiting or diarrhea. In the emergency department patient was noted to have a normal physical exam with the exception of irregularly irregular heartbeat. EKG confirmed the patient was in A-fib RVR with rates in the high 100s and initially had low blood pressure with systolics in the 80s. Chest x-ray was unremarkable as was CBC and CM however, she was noted to be positive and for influenza A. Patient was given 10 mg of IV diltiazem which improved her heart rate down to the 150s as well as improved her systolic blood pressure to the 90s. She was also noted as having an elevated troponin but once heart rate slowed down she was noted as having any ST depressions, ST elevations or T wave inversions to suggest [place], as well as patient being chest pain-free. An additional 10 mg IV dose of diltiazem improved patient's heart rate she was ranged tween 100 120, as well as her systolics which improved up to the 120s. However, given that this is new onset A-fib with RVR, emergency room physician paged hospitalist for admission of the patient with new diagnosis of A-fib with RVR and elevated troponin. Review of Systems All systems reviewed & are unremarkable except as noted in HPI and below PFSH All Active Problems (Updated 06/23/24 @ 13:54 by Andrew Meyers MD) Influenza A (Acute) Atrial fibrillation with RVR (Acute) Elevated troponin (Acute) Atrial fibrillation with RVR (Acute) Chronic constipation (Acute) Internal hemorrhoid (Acute) Diverticula of colon (Acute) Screening for colon cancer (Acute) Medical History (Updated 06/23/24 @ 13:54 by Andrew Meyers MD) Abnormal serum iron level Abnormal mammogram of right breast Learning disabilities Anxiety disorder Galactorrhea History of anemia Decreased libido Depression Snoring Family history of alcohol abuse Abnormality of left breast on screening mammogram Skin tag Surgical History (Updated 03/12/24 @ 13:20 by Namita Rodriguez) History of colonoscopy (~02/2024) History of tubal ligation (~2020) Social History Smoking/Tobacco Use Status: Former Tobacco Use Quit Date: 05/19/95 Smoking risk assessment performed?: Yes Alcohol Intake: current Alcohol Intake frequency: a few times a month Drug use: Never Substance use type: does not use Housing: house Do you feel safe at home: Yes Do you feel safe in your relationship?: Yes Meds Allergies and Home Medications Allergies Allergy/AdvReac Type Severity Reaction Status Date / Time fluticasone (From Flonase) Allergy Severe unknown Verified 06/23/24 09:40 Home Medications ?Medication ?Instructions ?Recorded ?Confirmed ?Type loratadine 10 mg tablet (Claritin) 10 mg PO DAILY 06/15/21 06/23/24 History cholecalciferol (vitamin D3) 125 125 mcg PO DAILY 01/08/24 06/23/24 History mcg (5,000 unit) capsule montelukast 10 mg tablet 10 mg PO QHS 01/08/24 06/23/24 History omega 2-zvr-mmk-fish oil 300 2 cap PO DAILY 01/08/24 06/23/24 History mg-1,000 mg capsule (Fish Oil) levothyroxine 25 mcg capsule 50 mcg PO DAILY 02/13/24 06/23/24 History psyllium husk 0.4 gram capsule 0.8 g (2 x 0.4 gram) PO DAILY 03/12/24 06/23/24 Rx (Metamucil) constipation #60 caps tirzepatide (weight loss) 2.5 2.5 mg subcut .COMPLEX 06/23/24 06/23/24 History mg/0.5 mL subcutaneous pen injector (Zepbound) Exam Narrative Exam Narrative: well appearing female sitting up in the bed in no acute distress, AOx4, heart irregularly irregular, rate ~80-90bpm, lungs CTAB, abdomen soft, non-tender, non-distended Results Labs 06/23/24 09:31 06/23/24 09:31 Labs: Laboratory Results - last 24 hr 06/23/24 06/23/24 06/23/24 09:31 10:20 10:30 WBC 7.45 RBC 5.87 H Hgb 16.6 H Hct 50.0 H MCV 85 MCH 28.3 MCHC 33.2 RDW 13.9 Plt Count 239 MPV 9.6 Immature Gran % 0.4 Neutrophils % 71.0 Lymphocytes % 17.0 Monocytes % 11.0 Eosinophils % 0.1 Basophils % 0.5 Nucleated RBC % 0.0 Absolute Neutrophils 5.28 Absolute Lymphocytes 1.27 Absolute Monocytes 0.82 H Absolute Eosinophils 0.01 Absolute Basophils 0.04 PT 9.9 INR 1.0 APTT 28.4 VBG pH 7.38 VBG pCO2 42 VBG pO2 26 VBG HCO3 25 VBG Total CO2 22 L VBG O2 Saturation 52 VBG Base Excess 0 Sodium 142 Potassium 3.9 Chloride 104 Carbon Dioxide 27.1 Anion Gap 10.9 BUN 18 Creatinine 1.4 H Est GFR (CKD-EPI 2020) 45.27 Glucose 116 H Calcium 10.0 Magnesium 2.2 Total Bilirubin 0.68 AST 25 ALT 36 Alkaline Phosphatase 96 Troponin I 55 H* 66 H* NT-Pro-B Natriuret Pep 1884 H Total Protein 8.1 Albumin 4.4 Procalcitonin < 0.10 TSH 0.83 Urine Color Yellow Urine Clarity Sl Cloudy Urine pH 6.0 Ur Specific [place] 1.015 Urine Protein Negative Urine Ketones 15 H Urine Blood Negative Urine Nitrite Negative Urine Bilirubin Negative Urine Urobilinogen 0.2 Ur Leukocyte Esterase Small H Urine RBC 0-2 Urine WBC 10-20 H Ur Epithelial Cells Few Urine Crystals Negative Urine Bacteria Few Urine Casts 3-5 Hyaline Urine Mucus Negative Urine Other Few Transitional Ur Culture Indicated? Yes Urine Glucose Negative COVID-19 Source Nasopharynx SARS-CoV-2 (PCR) Negative Influenza Type A (PCR) Positive A Influenza Type B (PCR) Negative RSV (PCR) Negative 06/23/24 12:45 WBC RBC Hgb Hct MCV MCH MCHC RDW Plt Count MPV Immature Gran % Neutrophils % Lymphocytes % Monocytes % Eosinophils % Basophils % Nucleated RBC % Absolute Neutrophils Absolute Lymphocytes Absolute Monocytes Absolute Eosinophils Absolute Basophils PT INR APTT VBG pH VBG pCO2 VBG pO2 VBG HCO3 VBG Total CO2 VBG O2 Saturation VBG Base Excess Sodium Potassium Chloride Carbon Dioxide Anion Gap BUN Creatinine Est GFR (CKD-EPI 2020) Glucose Calcium Magnesium Total Bilirubin AST ALT Alkaline Phosphatase Troponin I 114 H* NT-Pro-B Natriuret Pep Total Protein Albumin Procalcitonin TSH Urine Color Urine Clarity Urine pH Ur Specific [place] Urine Protein Urine Ketones Urine Blood Urine Nitrite Urine Bilirubin Urine Urobilinogen Ur Leukocyte Esterase Urine RBC Urine WBC Ur Epithelial Cells Urine Crystals Urine Bacteria Urine Casts Urine Mucus Urine Other Ur Culture Indicated? Urine Glucose COVID-19 Source SARS-CoV-2 (PCR) Influenza Type A (PCR) Influenza Type B (PCR) RSV (PCR) Last Vital Signs Temp 97.8 F 06/23/24 09:25 Pulse 87 06/23/24 12:32 Resp 20 06/23/24 12:32 BP 113/69 06/23/24 12:32 Pulse Ox 96 06/23/24 12:32 Time Spent Time spent with Patient: >75 minutes Time was spent: preparing to see the patient(eg.review tests), obtaining and/or reviewing separately otained hiistory, ordering medications,tests, procedures, referring, communicating with other health animal care service worker, indepentently interpreting results, counseling the patient and care coordination
[2024-06-23] MEDS: Metoprolol 25 MG TAB PO ×2 (13:40→20:37)
[2024-06-23] MEDS: Aspirin 81 MG CHEW 324 MG CH (13:40)
[2024-06-23] MEDS: Apixaban 5 MG TAB PO (20:01)
[2024-06-23] MEDS: Oseltamivir 30 MG CAP PO (20:01)
[2024-06-23] MEDS: Normal Saline Flush 10 ML SYR IVP (20:02)
[2024-06-23] MEDS: Montelukast 10 MG TAB PO (20:03)
[2024-06-24] VITALS (123 sets, daily range): BP systolic 78–121; BP diastolic 55–79; PULSE 50–146; RESP 15–45; TEMP 36.1–38.2; O2SAT 90–97
[2024-06-24] MEDS: Acetaminophen 325 MG TAB PO ×2 (03:51→12:56)
[2024-06-24] MEDS: Metoprolol 5 MG/5 ML VIAL (05:56)
[2024-06-24] MEDS: Levothyroxine 50 MCG TAB PO (05:59)
[2024-06-24 07:47] LABS: Abs Immature Grans 0.02 10^3/uL (0.0-0.06); Absolute Basophil Count 0.03 10^3/uL (0.0-0.2); Absolute Eosinophil Count 0.01 10^3/uL (0.0-0.7); Absolute Lymphocyte Count 1.26 10^3/uL (1.2-3.4); Absolute Monocyte Count 0.77 10^3/uL (0.1-0.8); Absolute Neutrophil Count 4.76 10^3/uL (1.2-6.7); Basophils % 0.4 %; Eosinophils % 0.1 %; HCT 45.9 % (36.0-46.0); HGB 15.2 g/dL (11.2-15.7); Immature Grans % 0.3 %; Lymphocytes % 18.4 %; MCH 27.8 pg (27.0-33.0); MCHC 33.1 % (32.0-36.0); MCV 84 fL (80-95); MPV 10.8 fL (8.0-11.0); Monocytes % 11.2 %; Neutrophils % 69.6 %; Platelet Count 210 10^3/uL (130-400); RBC 5.47 10^6/uL (3.93-5.22); RDW 14.2 % (11.7-14.6); RDW-SD 43.6 fL; WBC 6.85 10^3/uL (4.4-10.8)
[2024-06-24 08:04] LABS: Anion Gap 8.7 mmol/L (3-11); BUN 14 mg/dL (7-18); CO2 24.3 mmol/L (21.0-32.0); CREATININE 1.1 mg/dL (0.55-1.02); Calcium 9.2 mg/dL (8.5-10.1); Chloride 104 mmol/L (98-107); Estimated GFR 60.46 (mL/min/1.73m2); Glucose 100 mg/dL (74-106); Potassium 3.9 mmol/L (3.5-5.1); Sodium 137 mmol/L (136-145)
--- NOTE | 2024-06-24 08:29 | PDOC.CMIN ---
Date of service: 06/24/24 Time of Service: 08:29 Care Management Initial Assmt Initial Assessment Reason for Hospitalization: atrial fibrillation with RVR Functional Status/Living Situation Patient Presentation: Katiana was sitting up in bed when CM met with her. She was pleasant and cooperative and engaged well with CM. Katiana was admitted with Influenza and new onset Afib with RVR. She was admitted to the ICU but is doing well and will likely be changed to Medical-surgical status. Katiana lives in a single family home with her in [place]. They have 2 children who live locally and are very supportive. 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 She is independent at baseline and does not receive any community services. Katiana does not have Advanced Directives and requested 2 copies so that she and her can complete them together. CM provided the documents and is available to assist as needed. Town of Residence: [place] Resides with: Spouse ( Benji) Significant Other/Family: Local Employment Status: Employed Instrumental Activities of Daily Living (ADLs): Independent Medications Medication Management: No Issues/Barriers identified Advance Directives Advance Directives: Do you have an Advance Directive: N 06/08/21 15:54 AD On File at [facility]: N 06/08/21 15:54 Date Asked 06/23/24 06/23/24 09:20 AD Date Reviewed COLST On File at [facility] COLST Date Scanned Code Status Resuscitation Status Full Code Insurance Coverage/Financial Issues Insurance: /[facility] Care Team Visit Care Team Role Provider Type JUAN Wilkerson Primary Care Provider [employer] Andrew Meyers MD Emergency Provider [facility] STAFF PHYSICIAN Fabian Montaño MD Admit Provider [facility] STAFF PHYSICIAN Attending Provider Discharge Potential Discharge Needs: PCP F/U Appt and Other (cardiology) Anticipated Barriers to Discharge: None Identified Patient/Family Education Needs: Review discharge instructions, discuss Ask Me Three Transportation: Private vehicle Plan: Anticipate Katiana will be discharged home with no new services when medically stable. She will follow up with Cardiology, her PCP and plan of care and transport with family. CM will follow and continue to assess for discharge needs. Social Determinants of Health Screening Social Determinants of Health last assessed: 06/24/24 Will the Patient Participate in the Screening?: Yes Do you worry about having a steady place to live?: no Problems where you live: no known problems In the past 12 months, have you had to go without electric, gas, oil or water in your home?: no Have you or anyone in your house had to go without enough food to eat?: no Has lack of transportation kept you from medical appointments or from doing things needed for daily living?: no Has anyone in your life made you feel unsafe or unsupported?: no How hard is it for you to pay for the very basics like food, housing, medical care, and heating? Would you say it is:: Not hard at all Do you want help finding or keeping work or a job?: I do not need or want help If for any reason you need help with day-to-day activities such as bathing, preparing meals, shopping, managing finances, etc., do you get the help you need?: I get all the help I need How often do you feel lonely or isolated from those around you?: Never Do you speak a language other than Jordanian at home?: No Does the patient want assistance with any of the above?: No PFSH All Active Problems (Updated 06/23/24 @ 13:54 by Andrew Meyers MD) Influenza A (Acute) Atrial fibrillation with RVR (Acute) Elevated troponin (Acute) Atrial fibrillation with RVR (Acute) Chronic constipation (Acute) Internal hemorrhoid (Acute) Diverticula of colon (Acute) Screening for colon cancer (Acute) Medical History (Updated 06/23/24 @ 13:54 by Andrew Meyers MD) Abnormal serum iron level Abnormal mammogram of right breast Learning disabilities Anxiety disorder Galactorrhea History of anemia Decreased libido Depression Snoring Family history of alcohol abuse Abnormality of left breast on screening mammogram Skin tag Surgical History (Updated 03/12/24 @ 13:20 by Namita Rodriguez) History of colonoscopy (~02/2024) History of tubal ligation (~2020) Social History Smoking/Tobacco Use Status: Former Tobacco Use Quit Date: 05/19/95 Smoking risk assessment performed?: Yes Alcohol Intake: current Alcohol Intake frequency: a few times a month Drug use: Never Substance use type: does not use Housing: house Do you feel safe at home: Yes Do you feel safe in your relationship?: Yes
[2024-06-24] MEDS: Metoprolol 25 MG TAB 50 MG PO (08:55)
[2024-06-24] MEDS: Cholecalciferol (Vitamin D3) 1,000 UNIT TAB 5000 UNITS PO (08:56)
[2024-06-24] MEDS: Apixaban 5 MG TAB PO ×2 (08:56→19:13)
[2024-06-24] MEDS: Oseltamivir 30 MG CAP PO ×2 (08:57→19:13)
[2024-06-24] MEDS: Psyllium PKT 1 EACH PO (08:57)
[2024-06-24] MEDS: Loratidine 10 MG TAB PO (08:57)
[2024-06-24] MEDS: Omega-3 Fatty Acids 1000 MG CAP 2000 MG PO (08:57)
[2024-06-24] MEDS: Normal Saline Flush 10 ML SYR IVP ×2 (09:05→19:15)
--- NOTE | 2024-06-24 10:00 | DI.US_ITS ---
APPROVED REPORT EXAM: Comprehensive 2D, Doppler, and color-flow Echocardiogram Patient Location: In-Patient Room/Bed: 219 Pediatric Np: Paresh Patton RDCS (AE) Indications: New afib RVR, elevated troponin Conclusion Normal left ventricular wall thickness and chamber size. Ejection fraction is 55%. Wall motion is n ormal Normal right ventricular size and function Both atria are normal in size There is no structural or hemodynamically significant valvular disease Wall motion Left Ventricle The left ventricle is normal size. The left ventricular systolic function is normal. The left ventric ular ejection fraction is within the normal range. There is normal left ventricular wall thickness. T here is normal LV segmental wall motion. There is no ventricular septal defect visualized. LVEF is 55 %. Right Ventricle The right ventricle is normal size. The right ventricular systolic function is normal. Atria The left atrium size is normal. The right atrium size is normal. The interatrial septum is intact wit h no evidence for an atrial septal defect. Aortic Valve The aortic valve is normal in structure. Aortic valve is trileaflet. There is no aortic valvular sten osis. No aortic regurgitation is present. Mitral Valve The mitral valve is normal in structure. No evidence of mitral valve stenosis. There is no mitral corrina ve regurgitation noted. Tricuspid Valve The tricuspid valve is normal in structure. There is no tricuspid valve stenosis. Trace tricuspid reg urgitation. The RVSP is 20 mmHg. Pulmonic Valve The pulmonary valve is normal in structure. There is no pulmonic valvular stenosis. There is no pulmo mendoza valvular regurgitation. Great Vessels The aortic root is normal in size. The ascending aorta is normal in size. Aortic arch is not well vis ualized. IVC is normal in size and collapses >50% with inspiration. Pericardium There is no pericardial effusion. 2D Dimensions IVSD d PLAX 0.93 cm F: 0.6-1.0 Ao Root d 2.90 cm F: 2.7 - 3.3 LVPW d PLAX 0.82 cm F: 0.6 - 1.0 Ao Asc Diam d 3.09 cm F: 2.3 - 3.1 LVID d PLAX 5.11 cm F: 3.8 - 5.2 LVDs 3.59 cm F: 2.2 - 3.5 LV EF Teichholz 56.6 % FS 29.76 % LV EDV (Teich) 124.4 mL LV ESV (Teich) 54.0 mL Stroke Vol Index (Teich) 34.65 M-Mode TAPSE 2.05 cm (M/F) >1.7 Auto EF LV EDV A4C 73.4 mL LV EDV A2C 57.7 mL LV EDV BP 64.7 mL LV ESV A4C 33.4 mL LV ESV A2C 27.3 mL LV ESV BP 30.2 mL LVEF(%) A4C 54.6 % LVEF(%) A2C 52.7 % LVEF(%) BP 53.3 % LV SV A4C 40.0 ml LV SV A2C 30.4 ml LV SV BP 34.4 ml LV CO A4C 5.7 L/min LV CO A2C 4.2 L/min LV CO BP 5.0 L/min HR A4C 142.79 BPM HR A2C 138.45 BPM LV EDV Index (BP) LA Volume LA Length A4C 4.8 cm LA Length A2C 4.2 cm LA Area A4C s 11.65 cm2 LA Area A2C s 7.82 cm2 LA Vol A4C A-L 24.06 mL LA Vol A2C A-L 12.33 mL LA Vol Biplane A-L 18.4 mL LA Vol/BSA A4C A-L LA Vol/BSA A2C A-L LA Vol/BSA BP A-L 9.1 mL/m2 LA Vol A4C MOD 22.7 mL LA Vol A2C MOD 11.7 mL LA Vol BP MOD 17.3 mL RA Volume RA Area A4C 7.8 cm2 RA ESV A4C (A-L) 14.9mL RA Vol/BSA A4C A-L RA Length A4C 3.4 cm RA ESV A4C (MOD) 13.6mL LV Diastology MV E Vmax 0.91 (0.4-1.3 m/s) Aortic Valve AoV Vmax 0.90 m/s LVOT Vmax 0.84 m/s AoV Peak Grad 3.3 mmHg LVOT Peak Grad 2.8 mmHg AoV Area (Vmax) 2.26 cm2 LVOT VTI 0.132 m AoV VTI 0.143 m LVOT Mean Grad 2.0 mmHg AoV Mean Nathanael. 0.70 m/s LVOT SV 31.89 mL AoV Mean Grad 2.1 mmHg LVOT Diam s 1.75 cm AoV Area (VTI) 2.22 cm2 AV Regurg Peak Gr. 3.27 mmHg Velocity Ratio 0.93 Pulmonary Valve RVOT Vmax 0.69 m/s RVOT Peak Gr. 1.9 mmHg RVOT VTI 0.111 m RVOT Mean Gr. 1.2 mmHg Tricuspid Valve RA Pressure 3.00 mmHg TR Vmax 2.06 m/s TR Peak Grad 17.0 mmHg RVSP (TR) 20.0 mmHg
[2024-06-24] MEDS: Metoprolol 25 MG TAB PO (12:44)
--- NOTE | 2024-06-24 14:44 | W.PC.ACHO ---
Registration Status: Primary Language: Preferred Language: ED Information & Data Chief Complaint Dizzy/Sync 06/23/24 09:50 Chief Complaint Dizzy/Sync 06/23/24 09:31 Triage Note felt weird at work (works at 06/23/24 09:25 [employer]) ekg done on sight, showed extreme tachycardia. pt says she feels fine just weird. endorses a heavyness in her chest Medical / Surgical History (Last Reviewed 03/12/24 @ 10:28 by Carmela Zaidi) Abnormal serum iron level Abnormal mammogram of right breast Learning disabilities Anxiety disorder Galactorrhea History of anemia Decreased libido Depression Snoring Family history of alcohol abuse Abnormality of left breast on screening mammogram Skin tag (Last Updated 03/12/24 @ 13:20 by Namita Rordiguez) History of colonoscopy (~02/2024) History of tubal ligation (~2020) Most Recent Vital Signs Temperature 37.5 C 06/24/24 14:35 Temperature Source Temporal Artery Scan 06/24/24 14:35 Pulse 102 H 06/24/24 12:50 Pulse 127 H 06/24/24 12:50 Respiratory Rate 22 06/24/24 12:50 Respiratory Effort Normal 06/23/24 16:54 Respiratory Depth Normal 06/23/24 16:54 Respiratory Pattern Tachypnea 06/23/24 16:54 Blood Pressure 98/74 L 06/24/24 12:01 Blood Pressure Mean 84 06/24/24 12:01 Blood Pressure Position Standing 06/23/24 16:54 Pulse Oximetry 97 06/24/24 12:50 Oxygen Delivery Method Room Air 06/24/24 14:35 Oxygen Flow Rate 0 06/24/24 14:35 Pain Level 0 06/24/24 12:45 Comment Pt declined tylenol offered for fever. 06/23/24 19:15 Allergies fluticasone (From Flonase) Allergy (Severe, Verified 06/23/24 09:40) unknown Precautions Isolation Standard precaution 06/23/24 09:50 Active Medications Generic Name Dose Route Start Last Admin Trade Name Freq PRN Reason Stop Dose Admin Acetaminophen 0 mg 06/23/24 18:34 06/24/24 12:56 Acetaminophen 325 Mg Tab PO 650 mg Q4H PRN PRN Administration Apixaban 5 mg 06/23/24 20:00 06/24/24 08:56 Apixaban 5 Mg Tab PO 5 mg BID ONEIL Administration Cholecalciferol 5,000 units 06/24/24 08:30 06/24/24 08:56 Cholecalciferol (Vitamin D3) 1,000 Unit Tab PO 5,000 units DAILY ONEIL Administration Fish Oil 2,000 mg 06/24/24 08:30 06/24/24 08:57 [place]-3 Fatty Acids 1000 Mg Cap PO 2,000 mg DAILY ONEIL Administration Diltiazem HCl 125 mg/ Sodium 125 mls @ 5 mls/hr 06/23/24 10:30 06/23/24 16:17 Chloride IV 0 mg/hr INFUSION ONEIL 0 mls/hr Titration Protocol 5 MG/HR Levothyroxine Sodium 50 mcg 06/24/24 06:00 06/24/24 05:59 Levothyroxine 50 Mcg Tab PO 50 mcg DAILY@0600 ONEIL Administration Loratadine 10 mg 06/24/24 08:30 06/24/24 08:57 Loratidine 10 Mg Tab PO 10 mg DAILY ONEIL Administration Montelukast Sodium 10 mg 06/23/24 20:00 06/23/24 20:03 Montelukast 10 Mg Tab PO 10 mg HS ONEIL Administration Oseltamivir Phosphate 30 mg 06/23/24 20:00 06/24/24 08:57 Oseltamivir 30 Mg Cap PO 06/27/24 20:01 30 mg BID ONEIL Administration Psyllium Hydrophilic Mucilloid 1 each 06/24/24 08:30 06/24/24 08:57 Psyllium Pkt PO 1 each DAILY ONEIL Administration Sodium Chloride 0 ml 06/23/24 20:00 06/24/24 09:05 Normal Saline Flush 10 Ml Syr IVP 20 ml BID ONEIL Administration IV IV Catheter Type [Left Saline Lock Antecubital] IV Catheter Type [Right Saline Lock Antecubital] IV Catheter Gauge [Left 18 Antecubital] IV Catheter Gauge [Right 18 Antecubital] Diagnostics 06/24/24 Range/Units 06:10 WBC 6.85 (4.4-10.8) 10^3/uL RBC 5.47 H (3.93-5.22) 10^6/uL Hgb 15.2 (11.2-15.7) g/dL Hct 45.9 (36.0-46.0) % MCV 84 (80-95) fL MCH 27.8 (27.0-33.0) pg MCHC 33.1 (32.0-36.0) % RDW 14.2 (11.7-14.6) % Plt Count 210 (130-400) 10^3/uL MPV 10.8 (8.0-11.0) fL Immature Gran % 0.3 % Neutrophils % 69.6 % Lymphocytes % 18.4 % Monocytes % 11.2 % Eosinophils % 0.1 % Basophils % 0.4 % Nucleated RBC % 0.0 (0.0-0.3) % Absolute Neutrophils 4.76 (1.2-6.7) 10^3/uL Absolute Lymphocytes 1.26 (1.2-3.4) 10^3/uL Absolute Monocytes 0.77 (0.1-0.8) 10^3/uL Absolute Eosinophils 0.01 (0.0-0.7) 10^3/uL Absolute Basophils 0.03 (0.0-0.2) 10^3/uL Sodium 137 (136-145) mmol/L Potassium 3.9 (3.5-5.1) mmol/L Chloride 104 (98-107) mmol/L Carbon Dioxide 24.3 (21.0-32.0) mmol/L Anion Gap 8.7 (3-11) mmol/L BUN 14 (7-18) mg/dL Creatinine 1.1 H (0.55-1.02) mg/dL Est GFR (CKD-EPI 2020) 60.46 (mL/min/1.73m2) Glucose 100 (74-106) mg/dL Calcium 9.2 (8.5-10.1) mg/dL 06/23/24 10:30 Urine Culture - Preliminary Urine - Reflex from Ua Gram positive cristi, mixed Gram negative albert Intake and Output - 24 Hour Total 06/23/24 09:18 thru 06/24/24 13:04 Intake Total 2660.601 Output Total 1400 Balance 1260.601 Weight 96.8 kg Intake: IV 2039.601 Oral 621 Output: Urine 1400 Other: Urine Color Yellow Urine Appearance Clear Urine Odor None Falls Risk Assessment History of Falls No History 06/23/24 16:54 Contributing Factors No Factors 06/23/24 16:54 Ambulatory Aids Independent 06/23/24 16:54 Tubes/Lines W/no contributing factors 06/23/24 16:54 Fall Total Score 10 06/23/24 16:54 Level of Risk Standard/Low Risk 06/23/24 16:54 Problems (Last Reviewed 03/12/24 @ 10:28 by Carmela Zaidi) Influenza A (Acute) Elevated troponin (Acute) Atrial fibrillation with RVR (Acute) v v v v v v v v v Sending and/or Receiving Nurses: Please use comment section below to note any information pertinent to the patient hand-off not included above. Information / Comments: Report received from: Matt MENDEZ (ICU) @ [phone]
--- NOTE | 2024-06-24 14:51 | W.PM.PROGNOT ---
Date of Service Date of service: 06/24/24 Time of Service: 14:51 Assessment and Plan Assessment and plan (1) Atrial fibrillation with RVR: Status: Acute Assessment and plan: - Patient presented with palpitations was ultimately found to have newly diagnosed atrial fibrillation with rapid ventricular rate -She was given a total of 20 mg of IV diltiazem in the emergency department which did improve her heart rate down between 100 122 as well as improving her systolic blood pressures which were down in the 80s and now up to the 110's -was on dilt drip whc has since been weaned off just prior to arrival to the ICU -Also started on 25 mg p.o. Lopressor in the emergency department -TTE WNL -HR improved with increasing lopressor to 100mg PO BID, will monitor and add dilt if additional rate control is needed (2) Elevated troponin: Status: Acute Assessment and plan: - Likely secondary to A-fib RVR and significantly elevated rates as noted above (3) Influenza A: Status: Acute Assessment and plan: - IV fluid positive in the emergency department -Was given initial dose of Tamiflu, will continue Subjective Subjective Interval history since last seen: Patient states that she is doing well today. She understands the plan to continue to uptitrate her rate control medications as her heart rate is improved but has not been consistently under 100 bpm. Otherwise she has no complaints or concerns at this time. Exam Narrative Exam Narrative: well appearing female sitting up in the bed in no acute distress, AOx4, heart irregularly irregular, rate ~80-90bpm, lungs CTAB, abdomen soft, non-tender, non-distended Objective Last Vital Signs Temp 99.5 F 06/24/24 14:35 Pulse 77 06/24/24 14:40 Resp 25 H 06/24/24 14:40 BP 113/77 06/24/24 14:01 Pulse Ox 94 06/24/24 14:40 Laboratory Results - last 24 hr 06/24/24 06:10 WBC 6.85 RBC 5.47 H Hgb 15.2 Hct 45.9 MCV 84 MCH 27.8 MCHC 33.1 RDW 14.2 Plt Count 210 MPV 10.8 Immature Gran % 0.3 Neutrophils % 69.6 Lymphocytes % 18.4 Monocytes % 11.2 Eosinophils % 0.1 Basophils % 0.4 Nucleated RBC % 0.0 Absolute Neutrophils 4.76 Absolute Lymphocytes 1.26 Absolute Monocytes 0.77 Absolute Eosinophils 0.01 Absolute Basophils 0.03 Sodium 137 Potassium 3.9 Chloride 104 Carbon Dioxide 24.3 Anion Gap 8.7 BUN 14 Creatinine 1.1 H Est GFR (CKD-EPI 2020) 60.46 Glucose 100 Calcium 9.2 PAWSS Have you Been Recently Intoxicated or Drunk Within the Last 30 days?: No Have you Ever Experienced Previous Episodes of Alcohol Withdrawal?: Yes Have you ever Experienced Withdrawal Seizures?: No Have you ever Experienced Delirium Tremens(DT)s?: No Have you ever undergone Alcohol Rehabilitation Treatment (i.e, inpt ot outpatient treatment programs)?: No Have you ever Experienced Blackouts?: No Have you ever Combined Alcohol with other Downers within the last 90 days?: No Have you ever Combined Alcohol with any other Substance of Abuse during the last 90 days?: No Positive Blood Alcohol level on Presentation? [PCS.BAL]: No Evidence of Increased Autonomic Activity (i.e. HR>120, tremor, sweating, agitation, nausea)?: No Result: 1 Time Spent with Patient Time Spent with Patient: >50 minutes Time was spent: preparing to see the patient(eg.review tests), obtaining and/or reviewing separately otained hiistory, ordering medications,tests, procedures, referring, communicating with other health child care center administrator, indepentently interpreting results, counseling the patient and care coordination
[2024-06-24] MEDS: Montelukast 10 MG TAB PO (19:13)
[2024-06-24] MEDS: Metoprolol 25 MG TAB 100 MG PO (19:14)
[2024-06-25 01:48] VITALS: BP 125/78; PULSE 72; RESP 18; TEMP 36.3; O2SAT 92
[2024-06-25 03:51] VITALS: BP 94/71; PULSE 65; RESP 16; TEMP 36.6; O2SAT 95
[2024-06-25] MEDS: Levothyroxine 50 MCG TAB PO (06:23)
[2024-06-25 07:11] VITALS: BP 90/69; PULSE 74; RESP 18; TEMP 36.9; O2SAT 98
[2024-06-25] MEDS: Cholecalciferol (Vitamin D3) 1,000 UNIT TAB 5000 UNITS PO (08:04)
[2024-06-25] MEDS: Omega-3 Fatty Acids 1000 MG CAP 2000 MG PO (08:05)
[2024-06-25] MEDS: Loratidine 10 MG TAB PO (08:05)
[2024-06-25] MEDS: Oseltamivir 30 MG CAP PO (08:05)
[2024-06-25] MEDS: Apixaban 5 MG TAB PO (08:05)
--- NOTE | 2024-06-25 08:44 | PDOC.CMPRO ---
Date of service: 06/25/24 Time of Service: 08:45 Care Management Progress Note Discharge Potential Discharge Needs: PCP F/U Appt Anticipated Barriers to Discharge: None Identified Patient/Family Education Needs: Review discharge instructions, discuss Ask Me Three Transportation: Private vehicle Plan: Anticipate Katiana will be discharged home with no new services when medically stable. She will follow up with Cardiology, her PCP and plan of care and transport with family. CM will follow and continue to assess for discharge needs. Social Determinants of Health Screening Social Determinants of Health last assessed: 06/25/24 Will the Patient Participate in the Screening?: Unable to obtain Do you worry about having a steady place to live?: no Problems where you live: no known problems In the past 12 months, have you had to go without electric, gas, oil or water in your home?: no Have you or anyone in your house had to go without enough food to eat?: no Has lack of transportation kept you from medical appointments or from doing things needed for daily living?: no Has anyone in your life made you feel unsafe or unsupported?: no How hard is it for you to pay for the very basics like food, housing, medical care, and heating? Would you say it is:: Not hard at all Do you want help finding or keeping work or a job?: I do not need or want help If for any reason you need help with day-to-day activities such as bathing, preparing meals, shopping, managing finances, etc., do you get the help you need?: I get all the help I need How often do you feel lonely or isolated from those around you?: Never Do you speak a language other than Turkish at home?: No Does the patient want assistance with any of the above?: No
[2024-06-25 09:00] VITALS: BP 110/70
--- NOTE | 2024-06-25 09:03 | DSE_ITS ---
Date of service: 06/25/24 Time of Service: 09:03 DS: Diagnosis Discharge Diagnosis (1) Atrial fibrillation with RVR: Status: Acute (2) Elevated troponin: Status: Acute (3) Influenza A: Status: Acute Discharge Plan Disposition Patient Disposition: Home Condition: Good Discharge Details Reason For Visit: New A-fib RVR, Flu A Admit Date/Time: 06/23/24 13:35 Admit Provider: Fabian Montaño Attending Provider: Fabian Montaño Primary Care Provider: Kenton Harry Hospital Course Hospital Course: Patient presented to the hospital with chest heaviness found to have atypical RVR as well as fluid incontinence. She was initially on diltiazem drip and had been transitioned to 100 mg p.o. twice daily Lopressor. The patient did have some low blood pressures and lopressor has been decreased to 50mg PO BID. Additionally she had an echocardiogram which was without acute findings. Home Meds and New Rx's Prescriptions: New Eliquis 5 mg Tablet 5 mg PO BID Qty: 90 0RF metoprolol tartrate 25 mg Tablet 50 mg PO BID Qty: 90 0RF oseltamivir 30 mg Capsule 30 mg PO BID Qty: 5 0RF Continued loratadine [Claritin] 10 mg tablet 10 mg PO DAILY cholecalciferol (vitamin D3) 125 mcg (5,000 unit) capsule 125 mcg PO DAILY omega 1-fzs-vih-fish oil [Fish Oil] 300-1,000 mg capsule 2 cap PO DAILY montelukast 10 mg tablet 10 mg PO QHS levothyroxine 25 mcg capsule 50 mcg PO DAILY psyllium husk [Metamucil] 0.4 gram capsule 0.8 g PO DAILY Qty: 60 12RF Rx Instructions: take w/ 8oz water. can increase to 4 tabs a day Discontinued Zepbound 2.5 mg/0.5 mL pen injector 2.5 mg SUBCUT .COMPLEX Patient Comments: ADMINISTER 2.5 MG UNDER THE SKIN EVERY WEEK Rx Instructions: 2.5 mg subcutaneously weekly; Discharge Instructions Activity:: Activity as Tolerated Equipment/Supplies:: No Equipment Needed Diet:: As Tolerated Discharge Orders Discharge Orders: Discharge Order (Routine); Ordered 06/25/24 Ordered By: Fabian Montaño DS: Summary Time Spent with Patient providing and/or coordinating discharge services: Greater than 30 minutes Status at Discharge Functional status at discharge: independent ambulation Overall status at discharge: patient is back to baseline Mental Status: mental status grossly normal Speech and Movement: speech and movement normal Mood: congruent mood Affect: normal affect Quality:SDOH Health Related Social Needs: No Data to Display Exam Narrative Exam Narrative: well appearing female sitting up in the bed in no acute distress, AOx4, heart irregularly irregular, rate ~70-80bpm, lungs CTAB, abdomen soft, non-tender, non-distended Psych Mental Status: mental status grossly normal Speech and Movement: speech and movement normal Mood: congruent mood Affect: normal affect DS: Data Vitals/I&O Vitals and I&O: Vital Signs Temperature 98.4 F 06/25/24 07:11 Temperature Source Temporal Artery Scan 06/25/24 07:11 Pulse 74 06/25/24 07:11 Pulse 98 H 06/24/24 18:20 Respiratory Rate 18 06/25/24 07:11 Respiratory Effort Normal 06/23/24 16:54 Respiratory Depth Normal 06/23/24 16:54 Respiratory Pattern Tachypnea 06/23/24 16:54 Blood Pressure 90/69 L 06/25/24 07:11 Blood Pressure Mean 90 06/24/24 14:01 Blood Pressure Position Standing 06/23/24 16:54 Pulse Oximetry 98 06/25/24 07:11 Oxygen Delivery Method Room Air 06/25/24 07:11 Oxygen Flow Rate 0 06/25/24 07:11 Pain Level 0 06/25/24 08:45 Comment Pt declined tylenol offered for fever. 06/23/24 19:15 Intake & Output 06/24/24 06/25/24 06/25/24 17:59 05:59 17:59 Intake Total 622.417 / 622.417 290 / 912.417 Output Total 1050 / 1050 Balance -427.583 / -427.583 290 / -137.583 Weight 213 lb 6.519 oz Intake: IV 1.417 / 1.417 .417 Oral 621 / 621 280 / 901 Output: Urine 1050 / 1050 Other: Urine Color Yellow Yellow Urine Appearance Clear Clear Urine Odor Normal Normal Comment Patient voided ind. in toilet. per patient she voided in toilet [facility] All Active Problems (Updated 06/23/24 @ 13:54 by Andrew Meyers MD) Influenza A (Acute) Atrial fibrillation with RVR (Acute) Elevated troponin (Acute) Atrial fibrillation with RVR (Acute) Chronic constipation (Acute) Internal hemorrhoid (Acute) Diverticula of colon (Acute) Screening for colon cancer (Acute) Medical History (Updated 06/23/24 @ 13:54 by Andrew Meyers MD) Abnormal serum iron level Abnormal mammogram of right breast Learning disabilities Anxiety disorder Galactorrhea History of anemia Decreased libido Depression Snoring Family history of alcohol abuse Abnormality of left breast on screening mammogram Skin tag Surgical History (Updated 03/12/24 @ 13:20 by Namita Rodriguez) History of colonoscopy (~02/2024) History of tubal ligation (~2020) Social History Smoking/Tobacco Use Status: Former Tobacco Use Quit Date: 05/19/95 Smoking risk assessment performed?: Yes Alcohol Intake: current Alcohol Intake frequency: a few times a month Drug use: Never Substance use type: does not use Housing: house Do you feel safe at home: Yes Do you feel safe in your relationship?: Yes Time Spent with Patient Time Spent with Patient: <45 minutes Time was spent: preparing to see the patient(eg.review tests), obtaining and/or reviewing separately otained hiistory, ordering medications,tests, procedures, referring, communicating with other health resident care manager rn, indepentently interpreting results, counseling the patient and care coordination
--- NOTE | 2024-06-25 09:23 | CMDISCH_ITS ---
Date of service: 06/25/24 Time of Service: 09:24 LACE Index Scoring Tool Questions: Length of Stay (in days): 2 Was the patient admitted via the E.D.?: Yes E.D. Visits: 1 Answers: Total Score: 6 Risk of Readmission: Low Risk Care Management Discharge Plan Reason for Hospitalization: Afib with RVR Discharge Plan: Katiana will be discharged home with no new services. She will follow up with Cardiology, her PCP and plan of care and transport with family. Patient/Family Education Needs: Review discharge instructions, discuss Ask Me Three [facility] Health Related Social Needs: No Data to Display
[2024-06-25] MEDS: Normal Saline Flush 10 ML SYR IVP (09:24)
[2024-06-25] MEDS: Metoprolol 50 MG TAB PO (09:35)
[2024-06-25 09:41] VITALS: PULSE 107
== END 2024-06-25 10:22 | disposition home or self-care (01) | DRG 310 ==
LOC: ER 13:54 → ICU 16:40 → MS 06-24 15:29
PROVIDERS: Admitting Provider Family Medicine; Emergency Provider Emergency Medicine; PCP Physician Assistant Medical; Visit Provider Family Medicine
DX: I48.91 Unspecified atrial fibrillation; J10.1 Influenza due to other identified influenza virus with other respiratory manifestations; R74.8 Abnormal levels of other serum enzymes; R42 Dizziness and giddiness; E03.9 Hypothyroidism, unspecified; F41.9 Anxiety disorder, unspecified; F32.A Depression, unspecified; R07.89 Other chest pain; I95.9 Hypotension, unspecified; K59.09 Other constipation; K64.8 Other hemorrhoids; F81.9 Developmental disorder of scholastic skills, unspecified
CPT/HCPCS: 00123; 36415; 80048; 80053; 82805; 84145; 87637; 93005; 96361; 96365; 96366; 96376; 99291; 71045; 81003; 81015; 83735; 83880; 84443; 84484; 85025; 85610; 85730; 87086; 93010; 93306; 99223; 99233; 99239

== ENCOUNTER 2024-07-02 07:51 | Outpatient (CLI) | payer BC, SELFPAY ==
--- NOTE | 2024-07-02 07:45 | RT.EKG_ITS ---
APPROVED REPORT Exam: Resting ECG Reason for Exam: cardiac evaluation Patient Location: O HR:87 bpm ECG Measurements Heart Rate 87 AXIS AL [id number] P [id number] QRSd 87 QRS -34 QT 322 T 28 QTc 388 Conclusion Atrial fibrillation...V-rate 63-105, irreg A-activity Left anterior fascicular block Late transition
== END 2024-07-02 07:52 | disposition home or self-care (01) ==
LOC: DI.CARD 07:55
PROVIDERS: PCP Physician Assistant Medical; Visit Provider Internal Medicine Cardiovascular Disease
DX: I48.91 Unspecified atrial fibrillation (principal)
CPT/HCPCS: 93010

== ENCOUNTER 2024-07-27 06:00 | Day surgery (SDC) | payer BC, SELFPAY ==
[2024-07-27 06:25] VITALS: BP 154/87; PULSE 47; RESP 18; TEMP 36.5; O2SAT 100
--- NOTE | 2024-07-27 06:30 | RT.EKG_ITS ---
APPROVED REPORT Exam: Resting ECG Reason for Exam: Pre-Cardioversion Patient Location: O HR:46 bpm ECG Measurements Heart Rate 46 AXIS LA 229 P -18 QRSd 96 QRS -37 QT 453 T 4 QTc 397 Conclusion Sinus bradycardia...rate< 50 Prolonged LA interval...LA >220, V-rate 30- 49 Left anterior fascicular block Low voltage, precordial leads...precordial leads <1.0mV Late transition
[2024-07-27] MEDS: Normal Saline 1,000 ML 30 ML IV (07:00)
--- NOTE | 2024-07-27 07:09 | W.ANESPRE ---
General Info Date of Service Date Performed: 07/27/24 Height: 5 ft 5 in Weight: 98.4 kg Body Mass Index (BMI): 36.1 Surgical Procedure: Operation Date: 07/27/24 07:30 Proposed Procedure Side Surgeon p Cardioversion Ousmane Starkey MD Meds Allergies and Home Medications Allergies Allergy/AdvReac Type Severity Reaction Status Date / Time fluticasone (From Flonase) Allergy Severe Hives Verified 07/27/24 06:18 Home Medication ?Medication ?Instructions ?Recorded loratadine 10 mg tablet (Claritin) 10 mg PO DAILY 06/15/21 cholecalciferol (vitamin D3) 125 125 mcg PO DAILY 01/08/24 mcg (5,000 unit) capsule montelukast 10 mg tablet 10 mg PO QHS 01/08/24 omega 6-pio-gjl-fish oil 300 2 cap PO DAILY 01/08/24 mg-1,000 mg capsule (Fish Oil) levothyroxine 25 mcg capsule 50 mcg PO DAILY 02/13/24 apixaban 5 mg tablet (Eliquis) 5 mg PO BID #90 tabs 06/25/24 bupropion HCl 150 mg tablet,12 hr 150 mg PO DAILY 06/28/24 sustained-release metoprolol tartrate 25 mg tablet 100 mg PO BID 07/02/24 acetaminophen 500 mg tablet 500 mg PO ONCE 07/27/24 (Acetaminophen Extra Strength) Current Visit Medications: Current Medications Generic Name Dose Route Start Last Admin Trade Name Freq PRN Reason Stop Dose Admin Sodium Chloride 1,000 mls @ 80 mls/hr 07/27/24 06:00 Saline 1000ml Bag IV 08/26/24 05:59 INFUSION ONEIL Sodium Chloride 1,000 mls @ 30 mls/hr 07/27/24 06:00 07/27/24 07:00 Saline 1000ml Bag IV 08/26/24 05:59 30 mls/hr INFUSION ONEIL Administration IV Miscellaneous Supplies 1 each 07/27/24 06:00 Iv Access IV 07/27/24 23:59 DIRECTED ONEIL Sodium Chloride 0 ml 07/27/24 06:00 Normal Saline Flush 10 Ml Syr IV 07/27/24 23:59 PRN PRN Sodium Chloride 0 ml 07/27/24 06:00 Normal Saline 10 Ml Vial IJ 07/27/24 23:59 DIRECTED PRN Sterile Water 0 ml 07/27/24 06:00 Water,Injection,Sterile 10 Ml Vial IJ 07/27/24 23:59 DIRECTED PRN PFSH Active Problems Active Problems: Problem Status Onset Code Atrial fibrillation Chronic I48.91 Influenza A Acute J10.1 Chronic constipation Acute K59.09 Internal hemorrhoid Acute K64.8 Diverticula of colon Acute K57.30 Screening for colon cancer Acute Z12.11 Medical History Medical History History of abnormality of cervix pt. reports polyp was removed Hypothyroidism Abnormal serum iron level Abnormal mammogram of right breast Learning disabilities Anxiety disorder Galactorrhea History of anemia Decreased libido Depression Snoring Family history of alcohol abuse Abnormality of left breast on screening mammogram Skin tag Medical History Comments:: menopause 3 yrs ago Surgical History Surgical History Hx of cholecystectomy History of colonoscopy (~02/2024) History of tubal ligation (~2020) Tobacco Smoking/Tobacco Use Status: Former Tobacco Use Alcohol Alcohol Intake: current Alcohol intake frequency: a few times a month Substance Use Substance use: Never Substance use type: does not use Details: alcohol: t-45 dAYS Vital Signs and Lab Results Vital Signs Most Recent Vital Signs in EMR: Most Recent Vital Signs Temp Pulse Resp BP Pulse Ox 36.5 C 47 L 18 154/87 H 100 07/27/24 06:25 07/27/24 06:25 07/27/24 06:25 07/27/24 06:25 07/27/24 06:25 Lab Results Blood Type / Crossmatch: No Data to Display Complete Blood Count: No Data to Display Complete Metabolic Panel: No Data to Display Liver Function Panel: No Data to Display Coagulation Panel: No Data to Display Cardiac Panel: No Data to Display Arterial Blood Gas: No Data to Display Venous Blood Gas: No Data to Display Pancreas Panel: No Data to Display Thyroid Panel: No Data to Display Infectious Disease: No Data to Display Blood Cultures: No Data to Display Toxicology Panel: No Data to Display Panel: No Data to Display Imaging and Studies Imaging and Studies Study information below may be from another EMR and interpreted by another provider. Please see original notes in EMR for more complete details. EKG Summary: EKG PATIENT NAME: Katiana Monroe UNIT #: [id number] ORDERING PROVIDER: Ousmane Starkey M.D. PRIMARY CARE PROVIDER: PALAK SHELTON DATE/TIME OF SERVICE: 07/02/24 1322 : 1970 PERFORMING LOCATION: .CARD APPROVED REPORT Exam: Resting ECG Reason for Exam: cardiac evaluation Patient Location: O HR:87 bpm ECG Measurements Heart Rate 87 AXIS NV [id number] P [id number] QRSd 87 QRS -34 QT 322 T28 QTc 388 Conclusion Atrial fibrillation...V-rate 63-105, irreg A-activity Left anterior fascicular block Late transition <Electronically signed by OUSMANE STARKEY MD in OV> E-Sign Date: 07/02/24 E-Sign Time: 1424 Echocardiogram Summary: Patient Name: Katiana Monroe Unit #: [id number] Loc: ICU Ordering Provider: Fabian Montaño M.D. Status: ADM IN Primary Care Provider: Palak Harry Date of Exam: 06/24/24 Sex: F Admission Date: 06/23/24 : 1970 Age: 54 APPROVED REPORT EXAM: Comprehensive 2D, Doppler, and color-flow Echocardiogram Patient Location: In-Patient Room/Bed: [facility] Order Dispatcher: Paresh Patton RDCS (AE) Indications: New afib RVR, elevated troponin Conclusion Normal left ventricular wall thickness and chamber size. Ejection fraction is 55%. Wall motion is normal Normal right ventricular size and function Both atria are normal in size There is no structural or hemodynamically significant valvular disease Wall motion Left Ventricle The left ventricle is normal size. The left ventricular systolic function is normal. The left ventricular ejection fraction is within the normal range. There is normal left ventricular wall thickness. There is normal LV segmental wall motion. There is no ventricular septal defect visualized. LVEF is 55%. Right Ventricle The right ventricle is normal size. The right ventricular systolic function is normal. Atria The left atrium size is normal. The right atrium size is normal. The interatrial septum is intact with no evidence for an atrial septal defect. Aortic Valve The aortic valve is normal in structure. Aortic valve is trileaflet. There is no aortic valvular stenosis. No aortic regurgitation is present. Mitral Valve The mitral valve is normal in structure. No evidence of mitral valve stenosis. There is no mitral valve regurgitation noted. Tricuspid Valve The tricuspid valve is normal in structure. There is no tricuspid valve stenosis. Trace tricuspid regurgitation. The RVSP is 20 mmHg. Pulmonic Valve The pulmonary valve is normal in structure. There is no pulmonic valvular stenosis. There is no pulmonic valvular regurgitation. Great Vessels The aortic root is normal in size. The ascending aorta is normal in size. Aortic arch is not well visualized. IVC is normal in size and collapses >50% with inspiration. Pericardium There is no pericardial effusion. 2D Dimensions IVSD d PLAX 0.93 cm F: 0.6-1.0Ao Root d 2.90 cm F: 2.7 - 3.3 LVPW d PLAX 0.82 cm F: 0.6 - 1.0Ao Asc Diam d 3.09 cm F: 2.3 - 3.1 LVID d PLAX 5.11 cm F: 3.8 - 5.2 LVDs 3.59 cm F: 2.2 - 3.5 LV EF Teichholz 56.6 % FS29.76 % LV EDV (Teich)124.4 mL LV ESV (Teich)54.0 mL Stroke Vol Index (Teich)34.65 M-Mode TAPSE 2.05 cm (M/F) >1.7 Auto EF LV EDV A4C73.4 mLLV EDV A2C57.7 mLLV EDV BP64.7 mL LV ESV A4C33.4 mLLV ESV A2C27.3 mLLV ESV BP30.2 mL LVEF(%) A4C54.6 %LVEF(%) A2C52.7 %LVEF(%) BP53.3 % LV SV A4C40.0 mlLV SV A2C30.4 mlLV SV BP34.4 ml LV CO A4C5.7 L/minLV CO A2C4.2 L/minLV CO BP5.0 L/min HR J6G029.79 BPMHR E6N360.45 BPMLV EDV Index (BP) LA Volume LA Length A4C4.8 cmLA Length A2C4.2 cm LA Area A4C s 11.65 cm2LA Area A2C s 7.82 cm2 LA Vol A4C A-L24.06 mLLA Vol A2C A-L12.33 mLLA Vol Biplane A-L18.4 mL LA Vol/BSA A4C A-LLA Vol/BSA A2C A-LLA Vol/BSA BP A-L 9.1 mL/m2 LA Vol A4C MOD22.7 mLLA Vol A2C MOD11.7 mLLA Vol BP MOD17.3 mL RA Volume RA Area A4C7.8 cm2RA ESV A4C (A-L)14.9mLRA Vol/BSA A4C A-L RA Length A4C3.4 cmRA ESV A4C (MOD)13.6mL LV Diastology MV E Vmax 0.91 (0.4-1.3 m/s) Aortic Valve AoV Vmax0.90 m/sLVOT Vmax 0.84 m/s AoV Peak Grad3.3 mmHgLVOT Peak Grad 2.8 mmHg AoV Area (Vmax)2.26 ts6SGOX VTI0.132 m AoV VTI0.143 mLVOT Mean Grad 2.0 mmHg AoV Mean Nathanael.0.70 m/sLVOT SV 31.89 mL AoV Mean Grad2.1 mmHgLVOT Diam s 1.75 cm AoV Area (VTI)2.22 cm2AV Regurg Peak Gr.3.27 mmHg Velocity Ratio 0.93 Pulmonary Valve RVOT Vmax 0.69 m/s RVOT Peak Gr.1.9 mmHg RVOT VTI0.111 m RVOT Mean Gr.1.2 mmHg Tricuspid Valve RA Pressure 3.00 mmHgTR Vmax 2.06 m/s TR Peak Grad 17.0 mmHg RVSP (TR) 20.0 mmHg Ordered By: Fabian Montaño M.D. CC: Dictated By: Ousmane Starkey M.D. 06/24/24 1112 <Electronically signed by Ousmane Starkey M.D. in OV> 06/24/24 1131 Transcribed By: Ousmane Starkey MD 06/24/24 1112 This is privileged, confidential information intended only for the provider named. Any use or distribution by any person other than this provider is strictly prohibited. If you receive this report in error, please notify us immediately at [phone] and return the original report to us at the address above. Thank-you. Anesthesia Assessment and Plan Anesthesia History Personal History: No History of Anesthesia Complications Family History: Other Exercise Tolerance Exercise Tolerance: Metabolic Equivalents>4 Pertinent Negatives Pertinent Negatives: No Symptoms of GERD Cardiac & Pulmonary Exam Cardiac Exam: Normal S1/S2 Heart Sounds Pulmonary Exam: Clear Bilateral Breath Sounds Implantable Cardiac Device Does patient have a Pacemaker or an ICD?: No Airway Exam Known Difficult Airway: No Mallampati Class: 2 Mouth Opening: Normal (> 3cm) Thyromental Distance: Greater than 3 cm Neck Range of Motion: Full ROM Neck Circumference: Normal Teeth Condition: Normal Dentition ASA Classification ASA Score: ASA 2 Emergency Case?: No NPO Status NPO Status: NPO Clears >2 hours, Solids >8 hours Status Status: Not Relevant due to Medical History Anesthesia Plan Resuscitation Status: Full Code Anesthesia Technique: General Anesthesia Airway Planned: Natural Airway Monitors Used: Standard Monitors Preoperative Comments:: Patient cancelled due to Sinus Bradycardia per Dr. Starkey.
[2024-07-27 07:10] VITALS: BMI 36.1
--- NOTE | 2024-07-27 07:53 | NUR.NOTE ---
0735: Dr. Starkey in to see pt. looked at preprocedure EKG and told pt. she was no longer in afib and procedure was not necessary. instructed pt. to come to 2 week follow up and a plan would be made from there. told pt. to continue home medications and no changes today. Pt. agreeable to plan. IV DCd. Pt. changed self and coffee provided. Pt. states she thinks her follow up is in over 2 weeks. Message left at [facility] that follow up is 08/17/24 at 10AM and asked them to reach out to pt. if MD wanted it sooner. Pt. aware. [phone] Note:
== END 2024-07-27 06:01 | disposition home or self-care (01) ==
LOC: SUR 06:01
PROVIDERS: PCP Physician Assistant Medical; Visit Provider Internal Medicine Cardiovascular Disease
DX: Z53.8 Procedure and treatment not carried out for other reasons (principal); R00.1 Bradycardia, unspecified
CPT/HCPCS: 93005; 93010; J2704

== ENCOUNTER 2024-09-11 13:25 | Emergency (ER) | payer BC, SELFPAY ==
[2024-09-11] VITALS (34 sets, daily range): BP systolic 107–126; BP diastolic 54–97; PULSE 57–130; RESP 15–25; O2SAT 95–99
--- NOTE | 2024-09-11 13:15 | RT.EKG_ITS ---
APPROVED REPORT Exam: Resting ECG Reason for Exam: dizzy Patient Location: E HR:116 bpm ECG Measurements Heart Rate 116 AXIS NM [id number] P [id number] QRSd 85 QRS -45 QT 312 T 13 QTc 434 Conclusion Atrial fibrillation 116 no stemi
--- NOTE | 2024-09-11 13:30 | DI.RAD_ITS ---
Exam(s) XR PORTABLE CHEST AP EXAM: XR PORTABLE CHEST AP CLINICAL HISTORY: Chest pain TECHNIQUE: 2D digital imaging was performed of the chest. One image was obtained. An AP view was ob tained. COMPARISON: CR XR PORTABLE CHEST AP from 06/23/2024 FINDINGS: MEDIASTINUM: Normal. HEART: Normal. PULMONARY VASCULATURE: Normal. LUNGS: Clear. PLEURAL SPACE: No pleural effusion or pneumothorax. BONE:Within normal limits for the patient's age. OTHER FINDINGS:Normal. IMPRESSION: No acute pulmonary findings. DATA REPOSITORY: RADIATION DOSE DELIVERED:
[2024-09-11 13:50] LABS: Abs Immature Grans 0.02 10^3/uL (0.0-0.06); Absolute Basophil Count 0.05 10^3/uL (0.0-0.2); Absolute Eosinophil Count 0.09 10^3/uL (0.0-0.7); Absolute Lymphocyte Count 2.73 10^3/uL (1.2-3.4); Absolute Monocyte Count 0.57 10^3/uL (0.1-0.8); Absolute Neutrophil Count 5.37 10^3/uL (1.2-6.7); Basophils % 0.6 %; HGB 15.9 g/dL (11.2-15.7); Immature Grans % 0.2 %; Lymphocytes % 30.9 %; MCH 28.2 pg (27.0-33.0); MCHC 33.1 % (32.0-36.0); MCV 85 fL (80-95); MPV 9.4 fL (8.0-11.0); Monocytes % 6.5 %; Neutrophils % 60.8 %; Platelet Count 262 10^3/uL (130-400); RBC 5.64 10^6/uL (3.93-5.22); RDW 13.6 % (11.7-14.6); RDW-SD 42.2 fL; WBC 8.83 10^3/uL (4.4-10.8)
--- NOTE | 2024-09-11 13:52 | ED.GENADUL_ITS ---
Discharge Plan Discharge Details Chief Complaint: Palpitatns Primary Care Provider: Kenton Harry ED Provider: Yahaira Ball Home Meds and New Rx's Prescriptions: No Action metoprolol tartrate 25 mg tablet 175 mg PO .COMPLEX Rx Instructions: 175 mg orally 100 in am, 75 at night; loratadine [Claritin] 10 mg tablet 10 mg PO DAILY cholecalciferol (vitamin D3) 125 mcg (5,000 unit) capsule 125 mcg PO DAILY omega 3-txf-phy-fish oil [Fish Oil] 300-1,000 mg capsule 2 cap PO DAILY montelukast 10 mg tablet 10 mg PO QHS levothyroxine 25 mcg capsule 50 mcg PO DAILY bupropion HCl 150 mg tablet sustained-release 12 hr 150 mg PO DAILY Eliquis 5 mg Tablet 5 mg PO BID Qty: 90 0RF acetaminophen [Acetaminophen Extra Strength] 500 mg tablet 500 mg PO ONCE Patient Comments: pt. reports 1000mg HPI General Mode of arrival: ambulatory . Date/Time Provider Initiated Documentation: 09/11/24 13:37 . Limitations to Documentation: no limitations . Information obtained by: patient, RN notes reviewed and old records reviewed . HPI Narrative: 54-year-old female presents to the ER with a chief complaint of palpitations, dizziness lightheadedness left arm weakness which began this morning after waking up. Patient reports that she was found to be in atrial fibrillation in June, was followed by cardiology and was scheduled for cardioversion on 27 July but was found to be no longer in atrial fibrillation. She has been taking metoprolol twice daily and Eliquis however was taken off Eliquis at the end of July. She did forget to take her dose of metoprolol last night. However she did take it this morning. Upon arrival she does have a irregular rhythm from 79-1 07 she does appear to be in atrial fibrillation. Blood pressure is 116 113 systolic. Related Data Home Medications ?Medication ?Instructions ?Recorded ?Confirmed loratadine 10 mg tablet (Claritin) 10 mg PO DAILY 06/15/21 09/11/24 cholecalciferol (vitamin D3) 125 125 mcg PO DAILY 01/08/24 09/11/24 mcg (5,000 unit) capsule montelukast 10 mg tablet 10 mg PO QHS 01/08/24 09/11/24 omega 2-kpb-zls-fish oil 300 2 cap PO DAILY 01/08/24 09/11/24 mg-1,000 mg capsule (Fish Oil) levothyroxine 25 mcg capsule 50 mcg PO DAILY 02/13/24 09/11/24 apixaban 5 mg tablet (Eliquis) 5 mg PO BID #90 tabs 06/25/24 09/11/24 bupropion HCl 150 mg tablet,12 hr 150 mg PO DAILY 06/28/24 09/11/24 sustained-release metoprolol tartrate 25 mg tablet 175 mg PO .COMPLEX 07/02/24 09/11/24 acetaminophen 500 mg tablet 500 mg PO ONCE 07/27/24 09/11/24 (Acetaminophen Extra Strength) Previous Rx's ?Medication ?Instructions ?Recorded apixaban 5 mg tablet (Eliquis) 5 mg PO BID #90 tabs 06/25/24 Allergies Allergy/AdvReac Type Severity Reaction Status Date / Time fluticasone (From Flonase) Allergy Severe Hives Verified 09/11/24 13:36 General Stated Complaint: Palpitatns ALFREDO: 3 Review of Systems All systems reviewed & are unremarkable except as noted in HPI and below Cardiovascular Cardiovascular: Reports as per HPI, Reports lightheadedness, Reports radiating jaw, neck or arm pain and Reports palpitations Endocrine Endocrine: Reports palpitations Exam Narrative Exam Narrative: Constitutional: Alert and oriented x3. Appears stated age. Normal body habitus. Head: Normocephalic, no trauma. Eyes: Pupils PERRL, Red reflex noted, EOM's intact. Eyelids symmetrical without lesions, discharge, or swelling. ENT: Bilateral TM's WNL, External ear normal to inspection, no mastoid TTP, swelling, or erythema, Nasal turbinates WNL, no nasal discharge. Normal dentition, Posterior pharynx WNL, no exudate. Chest: Irregular rhythm, normal S1, S2, distal pulses intact. Resp: Lungs clear to auscultation bilaterally, no wheezes, rales, or rhonchi. Abdomen: Soft, non-distended, Normoactive bowel sounds all 4 quads. Musculoskeletal: Normal gait, Moves all 4 extremities without difficulty. Skin: No suspicious rashes or lesions. Capillary refill less than 2 sec. Neurologic: Cranial nerves II-XII intact. Alert and oriented x 3. Motor: No deficits noted. Sensory: Intact bilaterally all 4 extremities. Hematologic/Lymphatic: No ecchymosis, no lymphadenopathy. Course Vital Signs Vital signs: Vital Signs Pulse 91 H 09/11/24 13:29 Respiratory Rate 18 09/11/24 13:29 Blood Pressure 116/68 09/11/24 13:29 Pulse Oximetry 99 09/11/24 13:29 Pulse 93 H 09/11/24 13:50 Pulse 99 H 09/11/24 13:50 Respiratory Rate 17 09/11/24 13:50 Blood Pressure 116/68 09/11/24 13:36 Blood Pressure Mean 85 09/11/24 13:36 Blood Pressure Position Sitting 09/11/24 13:29 Pulse Oximetry 98 09/11/24 13:50 Oxygen Delivery Method Room Air 09/11/24 13:29 Oxygen Flow Rate 0 09/11/24 13:29 Pain Level 0 09/11/24 13:29 Lab/Test Results Lab/Test Results: Laboratory Tests Range/Units 09/11/24 13:33 WBC (4.4-10.8) 10^3/uL 8.83 RBC (3.93-5.22) 10^6/uL 5.64 H Hgb (11.2-15.7) g/dL 15.9 H Hct (36.0-46.0) % 48.0 H MCV (80-95) fL 85 MCH (27.0-33.0) pg 28.2 MCHC (32.0-36.0) % 33.1 RDW (11.7-14.6) % 13.6 Plt Count (130-400) 10^3/uL 262 MPV (8.0-11.0) fL 9.4 Immature Gran % % 0.2 Neutrophils % % 60.8 Lymphocytes % % 30.9 Monocytes % % 6.5 Eosinophils % % 1.0 Basophils % % 0.6 Nucleated RBC % (0.0-0.3) % 0.0 Absolute Neutrophils (1.2-6.7) 10^3/uL 5.37 Absolute Lymphocytes (1.2-3.4) 10^3/uL 2.73 Absolute Monocytes (0.1-0.8) 10^3/uL 0.57 Absolute Eosinophils (0.0-0.7) 10^3/uL 0.09 Absolute Basophils (0.0-0.2) 10^3/uL 0.05 Medical Decision Making 54-year-old female presents to the ER with a chief complaint of palpitations, dizziness lightheadedness left arm weakness which began this morning after waking up. Patient reports that she was found to be in atrial fibrillation in June, was followed by cardiology and was scheduled for cardioversion on 27 July but was found to be no longer in atrial fibrillation. She has been taking metoprolol twice daily and Eliquis however was taken off Eliquis at the end of July. She did forget to take her dose of metoprolol last night. However she did take it this morning. Upon arrival she does have a irregular rhythm from 79-1 07 she does appear to be in atrial fibrillation. Blood pressure is 116 113 systolic. EKG was reviewed by Dr. Sol and myself ER attending, old EKG available for review. At this time patient is a 90 controlled rate anywhere from 79-107, she is in atrial fibrillation. Her last EKG on July 27 was normal sinus rhythm at a rate of 46. Cardiac workup ordered including serial troponins, chest x-ray, PT PTT, proBNP. IV metoprolol 2.5 mg ordered will repeat pending heart rate and blood pressure if needed. Care is to be handed off to oncoming provider JUAN Tavera pending further observation and treatment. Patient continues to be in atrial fibrillation. I did order 10 mg of Eliquis p.o. I do recommend that she starts her Eliquis again. Most likely disposition is discharge unless patient status changes. She has had an initial negative troponin and negative workup. Medical Records Medical records reviewed: Yes I reviewed the patient's medical records. Lab Data Lab results reviewed: Yes I reviewed the patient's lab results. Labs: Laboratory Tests Range/Units 09/11/24 09/11/24 13:33 14:32 WBC (4.4-10.8) 10^3/uL 8.83 RBC (3.93-5.22) 10^6/uL 5.64 H Hgb (11.2-15.7) g/dL 15.9 H Hct (36.0-46.0) % 48.0 H MCV (80-95) fL 85 MCH (27.0-33.0) pg 28.2 MCHC (32.0-36.0) % 33.1 RDW (11.7-14.6) % 13.6 Plt Count (130-400) 10^3/uL 262 MPV (8.0-11.0) fL 9.4 Immature Gran % % 0.2 Neutrophils % % 60.8 Lymphocytes % % 30.9 Monocytes % % 6.5 Eosinophils % % 1.0 Basophils % % 0.6 Nucleated RBC % (0.0-0.3) % 0.0 Absolute Neutrophils (1.2-6.7) 10^3/uL 5.37 Absolute Lymphocytes (1.2-3.4) 10^3/uL 2.73 Absolute Monocytes (0.1-0.8) 10^3/uL 0.57 Absolute Eosinophils (0.0-0.7) 10^3/uL 0.09 Absolute Basophils (0.0-0.2) 10^3/uL 0.05 PT (9.1-11.1) sec 10.4 INR (0.9-1.1) 1.0 APTT (20.6-30.2) sec 26.7 Sodium (136-145) mmol/L 144 Potassium (3.5-5.1) mmol/L 3.2 L Chloride (98-107) mmol/L 106 Carbon Dioxide (21.0-32.0) mmol/L 29.8 Anion Gap (3-11) mmol/L 8.2 BUN (7-18) mg/dL 15 Creatinine (0.55-1.02) mg/dL 1.0 Est GFR (CKD-EPI 2020) (mL/min/1.73m2) 67.78 Glucose (74-106) mg/dL 92 Calcium (8.5-10.1) mg/dL 9.6 Magnesium (1.8-2.4) mg/dL 2.1 Total Bilirubin (0.2-1.0) mg/dL 0.4 AST (15-37) U/L 17 ALT (14-59) U/L 28 Alkaline Phosphatase (46-116) U/L 105 Troponin I (<or=51) ng/L 11 11 NT-Pro-B Natriuret Pep (<300) pg/mL 211 Total Protein (6.4-8.2) g/dL 7.4 Albumin (3.4-5.0) g/dL 4.2 Quality:SDOH Health Related Social Needs: No Data to Display PFSH All Active Problems Atrial fibrillation (Chronic) Influenza A (Acute) Chronic constipation (Acute) Internal hemorrhoid (Acute) Diverticula of colon (Acute) Screening for colon cancer (Acute) Medical History History of abnormality of cervix pt. reports polyp was removed Hypothyroidism Abnormal serum iron level Abnormal mammogram of right breast Learning disabilities Anxiety disorder Galactorrhea History of anemia Decreased libido Depression Snoring Family history of alcohol abuse Abnormality of left breast on screening mammogram Skin tag Surgical History Hx of cholecystectomy History of colonoscopy (~02/2024) History of tubal ligation (~2020) Family History Father Atrial fibrillation Cancer Nonhodgkin of stomach, prostate, lung Mother Hypercholesterolemia Social History Smoking/Tobacco Use Status: Former Tobacco Use Quit Date: 05/19/95 Smoking risk assessment performed?: Yes Alcohol Intake: current Alcohol Intake frequency: a few times a month Drug use: Never Substance use type: does not use Details: alcohol: t-45 dAYS Housing: house Do you feel safe at home: Yes Do you feel safe in your relationship?: Yes Additional Social history: [employer] Have you Been Recently Intoxicated or Drunk Within the Last 30 days?: No Have you Ever Experienced Previous Episodes of Alcohol Withdrawal?: No Have you ever Experienced Withdrawal Seizures?: No Have you ever Experienced Delirium Tremens(DT)s?: No Have you ever undergone Alcohol Rehabilitation Treatment (i.e, inpt ot outpatient treatment programs)?: No Have you ever Experienced Blackouts?: No Have you ever Combined Alcohol with other Downers within the last 90 days?: No Have you ever Combined Alcohol with any other Substance of Abuse during the last 90 days?: No Positive Blood Alcohol level on Presentation? [PCS.BAL]: No Evidence of Increased Autonomic Activity (i.e. HR>120, tremor, sweating, agitation, nausea)?: No Result: 0
[2024-09-11] MEDS: Metoprolol 5 MG/5 ML VIAL 2.5 MG IVP ×2 (13:59→14:47)
[2024-09-11 14:03] LABS: PTT Activated 26.7 sec (20.6-30.2); Prothrombin Time 10.4 sec (9.1-11.1)
[2024-09-11 14:19] LABS: ALT 28 U/L (14-59); AST 17 U/L (15-37); Albumin 4.2 g/dL (3.4-5.0); Alkaline Phosphatase 105 U/L (46-116); Anion Gap 8.2 mmol/L (3-11); BUN 15 mg/dL (7-18); Bilirubin, Total 0.4 mg/dL (0.2-1.0); CO2 29.8 mmol/L (21.0-32.0); Calcium 9.6 mg/dL (8.5-10.1); Chloride 106 mmol/L (98-107); Estimated GFR 67.78 (mL/min/1.73m2); Glucose 92 mg/dL (74-106); Magnesium 2.1 mg/dL (1.8-2.4); NT-proBNP 211 pg/mL (<300); Potassium 3.2 mmol/L (3.5-5.1); Sodium 144 mmol/L (136-145); Total Protein 7.4 g/dL (6.4-8.2); Troponin I 11 ng/L (<or=51)
[2024-09-11] MEDS: Apixaban 5 MG TAB 10 MG PO (14:28)
[2024-09-11] MEDS: Normal Saline 500 ML IV (14:28)
[2024-09-11 14:57] LABS: Troponin I 11 ng/L (<or=51)
--- NOTE | 2024-09-11 15:15 | ED.PROG_ITS ---
Date of service: 09/11/24 Time of Service: 15:15 Medical Decision Making This dictation utilizes [id number] dictation software and may contain unedited grammatical errors. Patient seen in signout from Gila Ball NP, please see her complete note. Essentially this 54-year-old female presents with dizziness, lightheadedness, left arm weakness and palpitations ongoing since this morning, forgot to take her metoprolol last night she is on twice daily dosing. She had been diagnosed with atrial fibrillation back in June, she had a planned cardioversion but never underwent the procedure, and she had a long enough remission where [facility] cardiology discontinued her Eliquis, she has had rates in the 110-117 range observed but is currently 89-90 a majority of the time observed on monitor at time of signout with no hypotension. She has no evidence of pulmonary edema or heart failure, she has serial troponins that are negative and was chest pain free throughout the episode since last night and waking up this morning. Her CBC shows no signs of infection and her CMP shows a mild hypokalemia, she had been given 2 doses of 2.5 mg Lopressor IV. Patients' medical history: Anemia, depression, atrial fibrillation. Family and social history: Noncontributory. Differential / pathologies of concern include medication nonadherence, atrial fibrillation, poor rate control but not overt RVR. Diagnostic studies of: - Reviewed prior studies, canceled third troponin as 2 high-sensitivity's are negative and the patient has not had chest pain and has greater than 6-hour onset. Interventions of: - Prior provider had given 2.5 mg IV Lopressor X2, restarted on Eliquis-due to her not being on Eliquis I do not feel that she should be cardioverted here in the emergency department. -Given 40mEq potassium PO ED Course/Assessment/Plan: 54-year-old female presents with palpitations, no chest pain, did report some left arm subjective weakness, cardiac workup is negative, no evidence of heart failure or pulmonary edema or respiratory distress, she has mild hypokalemia- possible cause of poor rate control but she also missed her dose of Lopressor last night. I am discharging the patient for outpatient cardiology follow-up, strict return criteria for any signs of chest pain, respiratory distress, developing cough or shortness of breath when laying flat. Findings not consistent with heart failure, uncontrolled RVR, wide-complex A- fib. Disposition of Atrial Fibrillation, Palpitations. Patient verbalized understanding of the plan and return to ED criteria and engaged in shared decision making. Medical Records Medical records reviewed: Yes I reviewed the patient's medical records. Imaging Data Radiologic Study: Attestation: I personally reviewed and interpreted this imaging study as follows: Imaging: X-Ray Radiologist's impression: EXAM: XR PORTABLE CHEST AP CLINICAL HISTORY: Chest pain TECHNIQUE: 2D digital imaging was performed of the chest. One image was obtained. An AP view was obtained. COMPARISON: CR XR PORTABLE CHEST AP from 06/23/2024 FINDINGS: MEDIASTINUM: Normal. HEART: Normal. PULMONARY VASCULATURE: Normal. LUNGS: Clear. PLEURAL SPACE: No pleural effusion or pneumothorax. BONE:Within normal limits for the patient's age. OTHER FINDINGS:Normal. IMPRESSION: No acute pulmonary findings. Lab Data Lab results reviewed: Yes I reviewed the patient's lab results. Labs: Laboratory Tests Range/Units 09/11/24 09/11/24 09/11/24 13:33 14:32 16:38 WBC (4.4-10.8) 10^3/uL 8.83 RBC (3.93-5.22) 10^6/uL 5.64 H Hgb (11.2-15.7) g/dL 15.9 H Hct (36.0-46.0) % 48.0 H MCV (80-95) fL 85 MCH (27.0-33.0) pg 28.2 MCHC (32.0-36.0) % 33.1 RDW (11.7-14.6) % 13.6 Plt Count (130-400) 10^3/uL 262 MPV (8.0-11.0) fL 9.4 Immature Gran % % 0.2 Neutrophils % % 60.8 Lymphocytes % % 30.9 Monocytes % % 6.5 Eosinophils % % 1.0 Basophils % % 0.6 Nucleated RBC % (0.0-0.3) % 0.0 Absolute Neutrophils (1.2-6.7) 10^3/uL 5.37 Absolute Lymphocytes (1.2-3.4) 10^3/uL 2.73 Absolute Monocytes (0.1-0.8) 10^3/uL 0.57 Absolute Eosinophils (0.0-0.7) 10^3/uL 0.09 Absolute Basophils (0.0-0.2) 10^3/uL 0.05 PT (9.1-11.1) sec 10.4 INR (0.9-1.1) 1.0 APTT (20.6-30.2) sec 26.7 Sodium (136-145) mmol/L 144 Potassium (3.5-5.1) mmol/L 3.2 L Chloride (98-107) mmol/L 106 Carbon Dioxide (21.0-32.0) mmol/L 29.8 Anion Gap (3-11) mmol/L 8.2 BUN (7-18) mg/dL 15 Creatinine (0.55-1.02) mg/dL 1.0 Est GFR (CKD-EPI 2020) (mL/min/1.73m2) 67.78 Glucose (74-106) mg/dL 92 Calcium (8.5-10.1) mg/dL 9.6 Magnesium (1.8-2.4) mg/dL 2.1 Total Bilirubin (0.2-1.0) mg/dL 0.4 AST (15-37) U/L 17 ALT (14-59) U/L 28 Alkaline Phosphatase (46-116) U/L 105 Troponin I (<or=51) ng/L 11 11 Cancelled NT-Pro-B Natriuret Pep (<300) pg/mL 211 Total Protein (6.4-8.2) g/dL 7.4 Albumin (3.4-5.0) g/dL 4.2 Quality:SDOH Health Related Social Needs: No Data to Display Discharge Plan Disposition Patient Disposition: Home Condition: Stable Discharge Details Clinical Impression: Atrial fibrillation, Palpitations Primary Care Provider: Kenton Harry ED Provider: Shahid Lock Home Meds and New Rx's Prescriptions: Continued metoprolol tartrate 25 mg tablet 175 mg PO .COMPLEX Rx Instructions: 175 mg orally 100 in am, 75 at night; loratadine [Claritin] 10 mg tablet 10 mg PO DAILY cholecalciferol (vitamin D3) 125 mcg (5,000 unit) capsule 125 mcg PO DAILY omega 4-yhu-kiz-fish oil [Fish Oil] 300-1,000 mg capsule 2 cap PO DAILY montelukast 10 mg tablet 10 mg PO QHS levothyroxine 25 mcg capsule 50 mcg PO DAILY bupropion HCl 150 mg tablet sustained-release 12 hr 150 mg PO DAILY Eliquis 5 mg Tablet 5 mg PO BID Qty: 90 0RF acetaminophen [Acetaminophen Extra Strength] 500 mg tablet 500 mg PO ONCE Patient Comments: pt. reports 1000mg Discharge Instructions Instructions: Atrial fibrillation, High Potassium Diet, Palpitations ED Additional Instructions: You were seen in the emergency department for your palpitations after missing a dose of your metoprolol last night, this is likely the cause of your palpitations as well as a return to your atrial fibrillation rhythm. You need to restart your Eliquis and contact [facility] cardiology for follow-up. Your cardiac workup is negative, you have no evidence of any heart failure, he had mildly low potassium, please eat a high potassium diet for the next week or so. Please return to the emergency department for any chest pain, shortness of breath, shortness of breath when laying flat, pink frothy cough or any other emergent concerns. Referrals: [facility] [Provider Group] Kenton Harry PA [Primary Care Provider] - Discharge Data Discharge Date/Time-TO BE ENTERED AT DEPARTURE: 09/11/24 15:42
[2024-09-11] MEDS: Potassium Chloride 20 MEQ TABCR 40 MEQ PO (15:36)
== END 2024-09-11 15:42 | disposition home or self-care (01) ==
PROVIDERS: Registered Nurse Emergency; Emergency Provider Physician Assistant; PCP Physician Assistant Medical
DX: R00.2 Palpitations; I48.91 Unspecified atrial fibrillation; E87.6 Hypokalemia; E03.9 Hypothyroidism, unspecified; Z87.891 Personal history of nicotine dependence
CPT/HCPCS: 00123; 80053; 93005; 96361; 96374; 96375; 99285; 71045; 83735; 83880; 84484; 85025; 85610; 85730; 93010

== ENCOUNTER 2025-02-21 02:11 | Outpatient (CLI) | payer BC, SELFPAY ==
--- NOTE | 2025-02-21 | DI.MAMMO_ITS ---
Exam(s) MAMMO SCREENING EXAM: MAMMO SCREENING CLINICAL HISTORY: SCREENING MAMMO Z12.31 TECHNIQUE: Bilateral full field digital CC and MLO mammographic images were obtained with 3D tomosynthesis and utilizing computer aided detection (CAD). COMPARISON: Comparison is made with prior examinations. FINDINGS: Masses/Architectural Distortion: No suspicious masses or areas of architectural distortion are present. There is a stable nodule in the retroareolar region of the right breast. Microcalcifications: No suspicious pleomorphic-type are seen. Skin Thickening/Nipple Retraction: None. IMPRESSION: 1. No significant interval change with no specific features of malignancy noted. 2. Unless there is more urgent need, screening mammography is recommended, as per [place] [employer] guidelines. BI-RADS Category 1 - Negative Breast Density - Category B - There are scattered areas of fibroglandular density. Breast density Category C or D implies that the patient has dense breast tissue. Dense breast tissue can make it harder to find cancer on a mammogram. Dense breast tissue is also associated with an increased risk of breast cancer. This information about the result of the mammogram report was provided to the patient to raise their awareness. Use this report when you speak with the patient about their risks for breast cancer, which includes their family history. At that time, you may recommend additional screening tests (Ultrasound or MRI) as these tests may add significant information. A negative radiographic report should not delay biopsy if a dominant or clinically suspicious mass is present. Up to ten percent of cancers are not identified on mammography. A negative report may reinforce clinical impression. Adenosis and dense breasts may obscure an underlying neoplasm. False positive reports average 6 to 10%. Patient will receive a letter notifying them of these results.
== END 2025-02-21 02:31 ==
PROVIDERS: PCP Nurse Practitioner Family; Visit Provider Nurse Practitioner Family
DX: Z12.31 Encounter for screening mammogram for malignant neoplasm of breast (principal)
CPT/HCPCS: 77063; 77067